=== PATIENT | female | born 2000 | race Caucasian/White ===

== ENCOUNTER 2022-10-13 21:24 | Inpatient (IN) ==
[2022-10-13] MEDS ORDERED: ACETAMINOPHEN 325 MG TAB PO PRN (23:18)
[2022-10-13] MEDS ORDERED: ONDANSETRON INJ 2 MG/ML 2 ML VIAL IV PRN (23:20)
--- NOTE | 2022-10-14 00:31 | History & Physical Report ---
Date of Service October 13, 2022 Assessment & Plan (1) Observed seizure-like activity: Plan: Patient is a 21-year-old G1, P0 female at 18 weeks gestation who presents to the hospital via direct transfer from [facility] for concern regarding seizure like activity. Patient has been admitted for neurologic evaluation and treatment. She is currently hemodynamically stable. -Admit to telemetry -Neurology consulted, appreciate recommendations -EEG ordered, will hold off MRI for now as this is not a new problem, will await neurology recs -Seizure precautions -will hold off from anticonvulsants at this time -CBC, CMP, mag for AM (2) 18 weeks gestation of : Plan: -Obstetrics consulted, appreciate recs - heart tones heard via Doppler at approximately 130-150 bpm -No vaginal bleeding (3) Leukocytosis: Plan: -likely secondary to seizure -Continue to trend daily Plan Diet: Regular OB DVT prophylaxis: Low risk, none ordered Dispo: Admit to telemetry with neurology consult CODE STATUS: Full code Admission and Anticipated Discharge Date Admission Date: October 13, 2022 History of Present Illness Chief Complaint: Seizure Primary Care Provider: John Smallwood PA-C Patient is a 21-year-old G1, P0 female at 18 weeks gestation who presents to the hospital via direct transfer from [facility] for concern regarding seizure like activity. Apparently this is not new for the patient. Patient reports that she has a grand mal seizure that happens once per year for a few years. She reports that her sister told her that she had a grand mal seizure for approximately 1 minute and it was a singular episode. Patient reports that she had a postictal state and was confused for 5 to 10 minutes after having the episode. Apparently she became nauseous due to a headache prior to this episode and vomited almost immediately before the seizure. She felt the headache was due to sinus issues but she does not have this symptom now. Denies any incontinence after possible seizure event. Denies any she reports that she has never been put on any anticonvulsive in the past. Only medication she takes is a vitamin. Denies vaginal bleeding but does report some abdominal cramping. No other complaints at this time. Patient currently feeling well and having no symptoms. Patient does report smoking daily consuming 6 cigarettes a day. Denies any drug use. Labs done at [facility]: -CMP with all results being within normal limits -Lactic acid level at 0.9 -Magnesium level 1.7 -Beta hCG quant to be at 10,276, this is considered a normal value given her gestation -CBC showing elevated white count at 16.6 with a neutrophilic predominance -All other values not mentioned above were within normal limits. Allergies Allergy/AdvReac Type Severity Reaction Status Date / Time Penicillins Allergy Unknown Hives, Verified 09/25/22 08:37 shortness of breath Home Medications Medication Instructions Recorded Confirmed Type omega-3 fatty acids [Fish Oil] PO 09/22/22 09/25/22 History prenat.vits,lavern,jwp-irng-rupiz 1 tab PO DAILY 09/22/22 09/25/22 History Past Med/Surg History Medical History (Updated 10/14/22 @ 01:03 by Dariusz Moeller DO) Seizures Surgical History (Updated 09/22/22 @ 13:40 by Daisy Mcdaniels) S/P wisdom tooth extraction Family History (Updated 09/22/22 @ 13:35 by Daisy Mcdaniels) Other No pertinent family history in first degree relatives Uterine cancer Social History (Updated 09/22/22 @ 13:36 by Daisy Mcdaniels) Smoking Status: Current every day smoker Tobacco Type: Cigarettes Cigarettes Per Day: 6; Do You Dip or Chew Tobacco: No; Hx Alcohol Use: No Hx Substance Use: No Preferred Language: Finnish Communication Ability: Effective Reception Specialist Required: No Beliefs That Will Affect Care: None marital status: Single marital status details: Benito (23) [phone] Current Living Situation: Alone Current Living Situation Comment: lives alone current occupational status: employed current occupation: [employer] Feels Safe at Home: Yes Safety Concerns: Feels Safe At This Time Assistive Devices: Glasses Review of Systems Review of Systems: All systems reviewed & are unremarkable except as noted in HPI & below Physical Exam Constitutional: WD/WN, vitals as above Eyes: + anicteric sclerae and PERRL ENMT: Ears: no hearing impairment Neck: trachea midline, no thyromegaly normal visual inspection Respiratory: normal respiratory effort, lungs clear to auscultation Cardiovascular: RRR, no murmur, no edema Gastrointestinal (Abdomen): normal bowel sounds, soft, nontender, no hepatosplenomegaly Gravid abdomen Musculoskeletal: Head/Neck/Chest: normocephalic and head atraumatic Skin: no rashes, warm and dry Neurologic: CN's II-XI intact bilaterally, moves all extremities and awake Psychiatric: A+Ox3, euthymic affect Genitourinary: OB Exam Abdomen: + heart tones Results & Data Results & Data Vital Signs (Past 12 Hours) Vital Signs Temp Pulse Resp BP Pulse Ox O2 Del Method 10/13/22 23:00 Room Air 10/13/22 22:43 36.7 C 77 14 94/56 L 98 Room Air
--- NOTE | 2022-10-14 02:11 | OB/GYN Consultation ---
Date of Consultation October 14, 2022 Assessment & Plan (1) 18 weeks gestation of : During hospital stay, recommend heart checks by doppler once per day. (2) Observed seizure-like activity: Given patient's history of seizures pre-, and gestational age <20 weeks, do not suspect eclampsia or -related etiology. BP not elevated and initial labs not indicative of preeclampsia either. CBC/CMP is ordered for this morning to recheck. If MRI/brain imaging is indicated, ok to perform MRI during . Would generally advise against gadolinium contrast unless its use is expected to significantly improve diagnostic abilities and is likely to improve patient outcome. If medication is indicated, the lowest teratogenic risk medications are lamotrigine and levetiracetam. Valproate should be avoided and only used if no other antiseizure medication is effective. Monotherapy is preferred if possible. There is increased clearance of antiseizure medications during , therefore if one is used, blood levels should be checked every 4 weeks - or more frequently if seizures increase or side effects worsen. Folic acid 1mg daily supplementation throughout the if an anti-seizure medication is used, if the medication is carbamazepine or valproate the folic acid should be 4mg daily. Please contact on-call [facility] for questions. History of Present Illness Reason for Consultation: , 18w Requesting Physician: Dr Hager Attending Physician: Romulo Hager MD History of Present Illness 21yo @ 18 05/16 initially seen at [facility] and transferred to [facility] for further eval/management for seizure. Apparently, she had a headache and vomited, then had a 1 minute grand mal seizure witnessed by her sister, followed by approx 5-10 minutes post-ictal state. She has had seizures in the past, has not been following regularly with neurology. uncomplicated. Transfer of care from [facility]. She is a smoker, underwent maternal cardiac echo d/t smoking and chest pain - wnl. Labs from [facility] ER (referenced in Dr Moeller's note) showed normal platelets, liver enzymes, creatinine. Allergies Allergy/AdvReac Type Severity Reaction Status Date / Time Penicillins Allergy Unknown Hives, Verified 09/25/22 08:37 shortness of breath Home Medications Medication Instructions Recorded Confirmed Type omega-3 fatty acids [Fish Oil] PO 09/22/22 09/25/22 History prenat.vits,lavern,yon-ayon-lrspr 1 tab PO DAILY 09/22/22 09/25/22 History Patient History Medical History (Updated 10/14/22 @ 01:03 by Dariusz Moeller DO) Seizures Surgical History (Updated 09/22/22 @ 13:40 by Daisy Mcdaniels) S/P wisdom tooth extraction Family History (Updated 09/22/22 @ 13:35 by Daisy Mcdaniels) Other No pertinent family history in first degree relatives Uterine cancer Social History (Updated 09/22/22 @ 13:36 by Daisy Mcdaniels) Smoking Status: Current every day smoker Tobacco Type: Cigarettes Cigarettes Per Day: 6; Do You Dip or Chew Tobacco: No; Hx Alcohol Use: No Hx Substance Use: No Preferred Language: Telugu Communication Ability: Effective Patch Setter Required: No Beliefs That Will Affect Care: None marital status: Single marital status details: Benito (23) [phone] Current Living Situation: Alone Current Living Situation Comment: lives alone current occupational status: employed current occupation: [employer] Feels Safe at Home: Yes Safety Concerns: Feels Safe At This Time Assistive Devices: Glasses Physical Exam Physical Exam: Gen: Awake, talking. Alert/oriented. Abd: soft, NTTP no bleeding Ext no edema Results & Data Vital Signs (Past 12 Hours) Vital Signs Temp Pulse Pulse Resp BP Pulse Ox O2 Del Method 10/13/22 22:36 56 L 10/13/22 23:00 Room Air 10/13/22 22:43 36.7 C 77 14 94/56 L 98 Room Air PG Care Time/CCT Total # of Minutes Spent Total Time Spent with Patient: Total time spent is greater than 50% in coordination of care (as documented) at patient's floor/unit and/or counseling patient: Coding Level of Care Code 68877 IN/OBS CONSULT LVL 2,35M Diagnoses 18 weeks gestation of Z3A.18 Observed seizure-like activity R56.9
[2022-10-14 04:49] LABS: Hematocrit (blood only) 35.1 % (37.0-47.0); Hemoglobin 11.9 g/dl (12.0-16.0); Mean Corpuscular Hgb Conc 33.9 g/dL (32.0-36.0); Mean Corpuscular Volume 91.4 fL (80.0-100.0); Platelet Count 248 K/uL (130-400); RDW Coefficient of Variation 13.4 % (11.5-14.5); RDW Standard Deviation 44.4 fL (36.4-46.3); Red Blood Count 3.84 M/uL (4.20-5.40); White Blood Count 13.84 K/ul (4.8-10.8)
[2022-10-14 05:08] LABS: Alanine Aminotransferase 12 U/L (7-52); Albumin Globulin Ratio 1.3 (0.9-2); Albumin Level 3.5 gm/dl (3.4-5.0); Alkaline Phosphatase 53 U/L (34-104); Anion Gap 5 (3-11); Aspartate Aminotransferase 15 U/L (13-39); BUN Creatinine Ratio 16.4 (10-20); Bilirubin,Total 0.2 mg/dl (0.2-1.0); Blood Urea Nitrogen 9 mg/dl (6-23); Calcium 8.9 mg/dl (8.6-10.3); Carbon Dioxide 25 mmol/L (21-32); Chloride 107 mmol/L (98-107); Creatinine Clr Calc Pharmacy 143.5 ml/min; Est GFR (African American) > 150.0 ml/min; Est GFR (Non-African American) 134.1 ml/min; Globulin 2.6 gm/dl (2.5-4.0); Glucose 101 mg/dl (70-99(Fasting)); Magnesium 1.8 mg/dl (1.7-2.4); Potassium 3.7 mmol/L (3.5-5.1); Sodium 137 mmol/L (136-145); Total Protein 6.1 gm/dl (6.0-8.3)
--- NOTE | 2022-10-14 08:52 | Electroencephalogram ---
EEG Procedure Note Date of Service October 14, 2022 Start / End Times Start Time: 803 End Time: 823 Referring Physician Dariusz Moeller D.O. History 21 real with history of seizure. Home Medication List Medication Instructions Recorded Confirmed Type omega-3 fatty acids [Fish Oil] PO 09/22/22 09/25/22 History prenat.vits,lavern,nqs-[id number]-[id number] 1 tab PO DAILY 09/22/22 09/25/22 History Inpatient Medication List Acetaminophen (Acetaminophen 325 Mg Tab) 650 mg PO Q4H PRN PRN Reason: Pain Stop: 11/12/22 23:17 Last Admin: 10/14/22 00:03 Dose: 650 mg Documented By: CHELY Prenat Multivit/Mccreary/Iron/Folic Ac ( Vitamin 1 Tab) 1 tab PO QAM CRYSTAL Stop: 11/13/22 08:59 Last Admin: 10/14/22 08:43 Dose: 1 tab Documented By: KHOA Description This is a 21 electrode EEG with a single channel dedicated to limited EKG. The electrodes were placed in accordance with the International 10-20 system. Interpretation The predominant background activity consists of a very well modulated 10 Hz activity, of up to 50 mV in amplitude,seen symmetrically distributed over the posterior head regions bilaterally. This activity attenuates nicely with eye- opening and other alerting procedures. Photic stimulation was performed and elicited no change in the background activity and no abnormal responses were seen. Hyperventilation was not performed. A minimal amount of muscle and movement artifact activity contaminated the recording and did not hinder interpretation to any significant degree. Throughout the waking portion of the recording, no focal abnormalities, abnormal slow activity, or potentially epileptogenic discharges are seen. The patient entered the drowsy state and brief periods of stage II sleep with no further activation. In summary, this EEG was normal during wakefulness and sleep. No focal abnormalities, potentially epileptogenic discharges, or abnormal slow activity was seen. Clinical Correlation The abscence of potentially epileptogenic activity does not exclude a seizure disorder, since interictally, EEGs can be normal. Clinical correlation is required. [facility] EEG Procedure Codes Indication for Procedure (1) Observed seizure-like activity: Neurology Neurology: 95360 EEG include record awake & sleepy
[2022-10-14] MEDS ORDERED: SODIUM CHLORIDE 0.9% 1000ML 1,000 ML IV ONE (09:00)
[2022-10-14] MEDS ORDERED: PRENATAL VITAMIN 1 TAB PO SCH (09:00)
--- NOTE | 2022-10-14 10:32 | Neurology Consultation ---
Date of Consultation October 14, 2022 Assessment & Plan (1) Seizure disorder: (2) 18 weeks gestation of : Plan patient is 18 weeks (due date March of 2023) who has a history of intermittent generalized seizures. The seizures started early in life (age 7) and they have been more recently triggered when she drinks alcohol excessively. She had a seizure October 13 that was essentially unprovoked. Neurologic examination is unremarkable today with no focal findings, meningeal signs, or encephalopathy. Laboratory studies are largely unremarkable as well. Recommendations: 1. I am concerned that she is at risk for further seizures as she moves through her and recommend initiating anticonvulsant medication. Initiate lamotrigine 25 mg twice a day for 1 week, then increase to 50 mg twice a day for 1 week, then increase to 75 mg twice a day for 1 week, then 100 mg twice daily. 2. Two weeks after she reaches 100 mg twice daily, then check a trough Lamictal level and we can adjust accordingly. 3. Consider MRI of the brain but ideally it would need to be with and without contrast. We would not give a woman contrast. I think the odds of finding an abnormality that needs attention currently is very low so it is reasonable to hold off on obtaining an MRI for now. We could get the MRI after she delivers. 4. I can follow as an outpatient in 2-3 weeks ( with PA) Overall, I spent a total of 80 minutes with this case including review of records, direct evaluation the patient at bedside, reports generation, and discussion of the case with the patient at bedside, RN at bedside, and Dr. Gongora including differential diagnosis and treatment options. History of Present Illness Reason for Consultation: Patient is a 21-year-old, who I was asked to see the request of Dr. Hager, for neurologic consultation regarding seizure. Requesting Physician: Dr. Hager Attending Physician: Pasha Gongora, History of Present Illness patient started having seizures sometime around age 7. As a child she had a seizure every 2-3 years and she cannot recall any triggering factors. Apparently she did not take any medicine for these ( but I have no records). Patient tells me that she started smoking cigarettes around age 11 and drinking alcohol around age 13. she still smokes, around 6 cigarettes per day. in June of this year she stopped drinking alcohol because she learned she was . Prior to this she was a binge drinker, drinking somewhat heavily on the weekends (or every other weekend) but not during the week. patient tells me that most of her seizures since her teenage years have occurred with excessive drinking. They were occurring about once per year on average. Her most recent seizure was in March Of 2022. She had had 12 beers and then apparently had this seizure. On October 13, she was at work, at the [employer] in [facility], as usual, when around 4 in the afternoon she felt hot and somewhat dizzy. She sat down and then vomited. After this she had a witnessed generalized seizure. It lasted about a minute and then she had 5-10 minutes of a postictal sleepiness. she has not had any seizures since. She was transferred from [place] emergency room directly to the floor. EEG this morning was unremarkable/ normal with no focal abnormalities or potentially epileptogenic discharges. This morning she feels back to baseline with no headache, pain, dizziness, vision problems, weakness, or numbness. CBC showed a mildly elevated white count mild anemia. Chem profile was largely unremarkable. Allergies Allergy/AdvReac Type Severity Reaction Status Date / Time Penicillins Allergy Unknown Hives, Verified 09/25/22 08:37 shortness of breath Home Medications Medication Instructions Recorded Confirmed Type omega-3 fatty acids [Fish Oil] PO 09/22/22 09/25/22 History prenat.vits,lavern,[id number]-[id number] 1 tab PO DAILY 09/22/22 09/25/22 History Patient History Medical History Seizures Surgical History S/P wisdom tooth extraction Family History Other No pertinent family history in first degree relatives Uterine cancer Social History Smoking Status: Current every day smoker Tobacco Type: Cigarettes Cigarettes Per Day: 6; Do You Dip or Chew Tobacco: No; Hx Alcohol Use: No Hx Substance Use: No Preferred Language: Liberian Communication Ability: Effective Hospice Liaison Required: No Beliefs That Will Affect Care: None marital status: Single marital status details: Benito (23) [phone] Current Living Situation: Alone Current Living Situation Comment: lives alone current occupational status: employed current occupation: [employer] Feels Safe at Home: Yes Safety Concerns: Feels Safe At This Time Assistive Devices: Glasses Review of Systems Constitutional: no fever, no fatigue and no weakness Eyes: no diplopia, no eye pain and no worsening vision Ear, Nose, Mouth, Throat: no ear pain, no tinnitus, no hearing loss, no dizziness, no snoring, no hoarseness and no dysphagia Respiratory: no cough and no dyspnea Cardiovascular: no chest pain, no palpitations and no lightheadedness Gastrointestinal: no abdominal pain, no nausea and no vomiting Genitourinary: no dysuria, no urinary frequency and no urinary incontinence Musculoskeletal: no back pain, no neck pain, no radicular pain, no joint pain and no myalgia Integumentary: no rash and no lesions Neurologic: no gait abnormality, no localized weakness, no generalized weakness, no tingling, no numbness, no tremor(s), no abnormal movements, no headache(s), no abnormal speech, no confusion and no memory loss Psychiatric: no depression, no irritability, no anxiety, no difficulty concentrating, no confusion and no hallucinations Endocrine: no fatigue and no flushing Hematologic / Lymphatic: no easy bleeding and no easy bruising Allergy / Immunological: no urticaria and no problem reported Exam (Neuro) Physical Exam: The patient is right-handed. The patient is awake, alert, and attentive. Speech is normal without any aphasia or dysarthria. The patient can name objects, repeat phrases, and has normal spontaneous speech. Mentation and thought processes are intact, with orientation to person, place and time, and normal fund of knowledge. Attention and concentration are normal. Mood and affect are normal and appropriate. General appearance and grooming are normal. Short and long-term memory are intact. Pupils are 4 mm bilaterally and reactive to light. Extraocular eye muscles are intact without nystagmus. Visual acuity and visual cannon seem normal grossly to confrontation. There are no deficits to sensation in the face in all 3 distributions of the fifth cranial nerve bilaterally. Corneal reflexes are positive bilaterally. Facial strength and symmetry was normal bilaterally. Hearing seems normal bilaterally. Palate moves well without asymmetry. There is normal sternocleidomastoid and trapezius (shoulder shrug) strength bilaterally. Tongue is midline with good strength bilaterally. Neck has a full range of motion without discomfort. There are no cervical bruits bilaterally. There are no cranial or ocular bruits. Heart is without murmur. There is a regular rhythm and rate. Cervical, thoracic, and lumbar spine are nontender to palpation. Gait is narrow based, with good arm swing, turns, and stance. Balance is normal eyes open or closed. The patient can tandem walk without difficulty. The patient can heal and toe walk normally. With outstretched arms there is no drift. There are no resting, postural, or action tremors. There is no ataxia with finger to nose testing. There is good facility in the hands. No other abnormal involuntary movements are noted. Motor strength is 5/5 diffusely in the arms bilaterally including deltoids, biceps, triceps, brachioradialis, wrist flexors and extensors, paper core machine operator, and intrinsic hand muscles. Motor strength is 5/5 diffusely in the legs bilaterally including hip flexors, quadriceps, hamstrings, gastrocnemius, tibialis anterior, tibialis posterior, and Peroneii muscles. Toe extensors are normal and there is good bulk in the extensor digitorum brevis muscles bilaterally. The limbs have good tone without rigidity or spasticity. There is no atrophy noted in the muscles. Muscle bulk is normal, there is no tenderness to palpation, no myotonia to percussion, and no fasciculations seen. Sensory examination is intact to touch and pin throughout all 4 limbs diffusely. Reflexes are 2/4 in the biceps, triceps, brachioradialis, quadriceps, and Achilles tendons bilaterally. There is no clonus bilaterally. Toes are downgoing with plantar stimulation bilaterally. Peripheral pulses are present and of normal quality distally in all 4 limbs. There is no peripheral edema noted in the limbs. Results & Data Vital Signs (Past 12 Hours) Vital Signs Temp Pulse Pulse Pulse Resp BP BP 10/14/22 08:48 36.8 C 69 18 80/40 L 10/14/22 07:24 47 L 10/14/22 06:54 36.6 C 59 L 16 92/57 L 10/14/22 05:20 36.4 C L 60 18 86/39 L 10/13/22 22:36 56 L 10/13/22 23:00 10/13/22 22:43 36.7 C 77 14 94/56 L Pulse Ox O2 Del Method 10/14/22 08:48 98 Room Air 10/14/22 07:24 10/14/22 06:54 98 Room Air 10/14/22 05:20 98 Room Air 10/13/22 22:36 10/13/22 23:00 Room Air 10/13/22 22:43 98 Room Air PG Care Time/CCT Total # of Minutes Spent Total Time Spent with Patient: Total time spent is greater than 50% in coordination of care (as documented) at patient's floor/unit and/or counseling patient: Coding Level of Care Code 72591 IN/OBS CONSULT LVL 5,80M Diagnoses Seizure disorder G40.909 18 weeks gestation of Z3A.18 Time Spent (min) 80
--- NOTE | 2022-10-14 13:03 | Discharge Summary ---
Date of Service October 14, 2022 Admission HPI Per Admitting Provider Patient is a 21-year-old G1, P0 female at 18 weeks gestation who presents to the hospital via direct transfer from [facility] for concern regarding seizure like activity. Apparently this is not new for the patient. Patient reports that she has a grand mal seizure that happens once per year for a few years. She reports that her sister told her that she had a grand mal seizure for approximately 1 minute and it was a singular episode. Patient reports that she had a postictal state and was confused for 5 to 10 minutes after having the episode. Apparently she became nauseous due to a headache prior to this episode and vomited almost immediately before the seizure. She felt the headache was due to sinus issues but she does not have this symptom now. Denies any incontinence after possible seizure event. Denies any she reports that she has never been put on any anticonvulsive in the past. Only medication she takes is a vitamin. Denies vaginal bleeding but does report some abdominal cramping. No other complaints at this time. Patient currently feeling well and having no symptoms. Patient does report smoking daily consuming 6 cigarettes a day. Denies any drug use. Labs done at [facility]: -CMP with all results being within normal limits -Lactic acid level at 0.9 -Magnesium level 1.7 -Beta hCG quant to be at 10,276, this is considered a normal value given her gestation -CBC showing elevated white count at 16.6 with a neutrophilic predominance -All other values not mentioned above were within normal limits. Admission Exam Per Admitting Provider Constitutional: WD/WN, vitals as above Eyes: + anicteric sclerae and PERRL ENMT: Ears: no hearing impairment Neck: trachea midline, no thyromegaly normal visual inspection Respiratory: normal respiratory effort, lungs clear to auscultation Cardiovascular: RRR, no murmur, no edema Gastrointestinal (Abdomen): normal bowel sounds, soft, nontender, no hepatosplenomegaly Gravid abdomen Musculoskeletal: Head/Neck/Chest: normocephalic and head atraumatic Skin: no rashes, warm and dry Neurologic: CN's II-XI intact bilaterally, moves all extremities and awake Psychiatric: A+Ox3, euthymic affect Genitourinary: OB Exam Abdomen: + heart tones Principal Diagnosis Seizure like activity Discharge Exam Constitutional WD/WN, vitals as above Eyes PERRL, conjunctivae normal, anicteric sclerae Respiratory normal respiratory effort, lungs clear to auscultation Cardiovascular RRR, no murmur, no edema Gastrointestinal (Abdomen) normal bowel sounds, soft, nontender, no hepatosplenomegaly Skin no rashes, warm and dry Psychiatric A+Ox3, euthymic affect Discharge Data Allergies Allergy/AdvReac Type Severity Reaction Status Date / Time Penicillins Allergy Unknown Hives, Verified 09/25/22 08:37 shortness of breath Consultations 10/13/22 23:20 Consult Neurology Routine 10/13/22 23:32 Consult Obstetrics Routine Hospital Course (1) Observed seizure-like activity: Patient is a 21-year-old G1, P0 female at 18 weeks gestation who presents to the hospital via direct transfer from [facility] for concern regarding seizure like activity. Patient has been admitted for neurologic evaluation and treatment. She is currently hemodynamically stable. -EEG performed in hospital which was normal. -Consulted Neurology: -stress of may trigger further seizure episodes, recommend starting an anti-seizure medication. -Start on lamotrigine 25mg BID and build up to 100mg BID followed by checking lamotrigine trough level at follow up neurology appointment in 3 weeks. -Can consider MRI brain w/&w/o contrast after delivery. -Sent script for Lamotrigine to pharmacy for patient and discharged since overall feeling well and back to baseline. -Follow up with neurology in 2-3 weeks, follow up with OB clinic. (2) 18 weeks gestation of : -Obstetrics consulted, recommended either lamotrigine or leviteracitam if seizure prophylaxis medication, increased clearance of antiseizure meds in so check levels at 4 weeks. - heart tones heard via Doppler at approximately 130-150 bpm -No vaginal bleeding (3) Leukocytosis: -likely secondary to seizure Total Time Total Time Spent Total Time Spent (In Minutes): <30 Discharge Plan Discharge Items Patient Disposition: Home - Self-Care Reason For Visit: Seizure Discharge Diagnosis: Epileptic seizure Activity: Resume your previous activity Non-emergency contact: Primary Care Provider and Neurologist Call non-emergency contact if: you have any medication questions, your symptoms worsen and you have a fever Follow-up/Referrals: Weston Miguel MD [Physician] - 10/20/22 10:00 am (to be scheduled for approximately three weeks post-discharge) John Smallwood PA-C [Primary Care Provider] - 10/21/22 10:30 am Diet: Regular OB Addtl Attending Provider Instructions: You were admitted to the hospital for seizure. You were evaluated by our neurologist, who feels your seizures are epileptic seizures, which can be treated with anti-seizure medicine. This is especially important because p regnancy can sometimes be a seizure trigger. Your symptoms have improved and we feel it is safe for you to return home. A discharge summary will be sent to your primary care physician to ensure rufino nuity of care. Please bring this discharge summary with you to your next office appointment so that your provider can review it at that time. Follow-up appointments: Make a follow-up appointment with your PCP within the next week. It is very important that you follow up with them shortly after discharge from the hospital. We have requested a follow-up appointment with Dr. Miguel (the neurologist who evaluated you in the hospital) which will take place in about three weeks. The neurology office will be in touch with you over the next few days to schedule this appointment. Keep all your follow-up appointments as already scheduled. If you cannot make an appointment, notify your provider. Medications: Your medication list has been reviewed and reconciled upon discharge to ensure accuracy and continuity of care. An updated list of all your medications is included with your hospital discharge paperwork. Please review this list mrailyn catheriney, and make note of any changes. * We sent a new medication called lamotrigine (also called Lamictal) to your pharmacy. Your dose of lamotrigine will go up over time: * For the next seven days (10/14 - 10/20), take lamotrigine (50mg) one half tablet twice daily. * The following week (10/21 - 10/27), take lamotrigine (50mg) one tablet twice daily. * During week three (10/28 - 11/03), take lamotrigine (50mg) one and a half tablets twice daily. * Starting 11/04, take lamotrigine (50mg) two tablets twice daily. This will be your dose until you follow-up with neurology, as your neurologist may adjust the dose further. If you have any issues filling these prescriptions, please call [phone] and ask to leave a message for Dr. Alex Styles. Take your medications as instructed; do not skip a dose of your medicines. Make sure all of your doctors know every medicine you are taking (including bnfa-wiv-ckywmpg medicines, vitamins, and supplements). Call your primary care provider before taking any new medicines (including vzue-mfg-lzmtute medicines, vitamins, and supplements), because some of these may interact with your current medications, or may make your symptoms worse. Tell your primary care provider if you cannot afford your medications. CONTACT YOUR PRIMARY CARE PROVIDER if you experience any of the following: Repeat seizure like activity. Difficulty following your treatment plan, or difficulty taking medications CALL 911 OR GO TO THE EMERGENCY DEPARTMENT if you experience any of the following: Sudden, severe abdominal pain or nausea/vomiting Severe chest pain, or chest pain that radiates (moves) to your jaw or arm Sudden, severe shortness of breath or difficulty breathing Thank you for allowing us to participate in your care. Pending Studies at Discharge: No Stand-Alone Forms: My [facility], Smoking Cessation Medications and DC Order Prescriptions: New lamotrigine 50 mg tablet,disintegrating 50 mg PO BID Qty: 70 0RF Rx Instructions: -For the next seven days (10/14 - 10/20), take lamotrigine (50mg) one half tablet twice daily. -The following week (10/21 - 10/27), take lamotrigine (50mg) one tablet twice daily. -During week three (10/28 - 11/03), take lamotrigine (50mg) one and a half tablets twice daily. -Starting 11/04, take lamotrigine (50mg) two tablets twice daily. Continued prenat.vits,lavern,efc-xyyk-ykdid Tablet 1 tab PO DAILY omega-3 fatty acids [Fish Oil] PO Discharge Orders: Discharge Order (Routine); Ordered 10/14/22 Ordered By: Alex Gant/Other Patient Handouts: First Aid: Seizures, What Is a Partial Seizure?, Partial Seizures: Know What to Do, Partial Seizures: Staying Healthy Admission Data Admit Date/Time: 10/13/22 22:31 Attending Provider: Pasha Gongora Admit Provider: Romulo Hager Primary Care Provider: John Smallwood Other Providers: Weston Miguel ; Julienne Camp Other Interventions: Discharge Summary Assessment (RN) Last Done: 10/14/22 13:22 Supervising Physician Co-Signing Physician Notes I personally examined the patient and verified all munoz points of history and exam, discussed case, and agree with decision making with Dr Styles Feeling okay. Would like to go home. Discussed with neurologyhis main concern is that as the physiologic stressors of continue, her seizure threshold and seizures themselves may get worse and worseand therefore the risk of uncontrolled seizures would be higher risk to her and the baby's wellbeing than the risk of low-dose anticonvulsant. Patient expresses understanding. Vitals noted, in general she is awake and alert pleasant no distress. HEENT normocephalic atraumatic mucous membranes moist. Breathing unlabored no accessory muscle use good effort. Skin shows no rashes no pallor or icterus. Seizure disorder with breakthrough seizure After discussion with neurology, concern would be that her seizures may worsen as the progresses, patient expresses understanding of this and agrees with anticonvulsant therapy. [id number] twice daily increased to 50 twice daily and so on per neurology recommendationswe will be seeing neuro as an outpatient as well. Folic acid at 1 mgI have sent a separate prescription just to be sure she is getting enough folate. Otherwise as above Resident Activity Tracking Resident Involvement: Resident Care Provided Care Provided: Adult Hospital Medicine
--- NOTE | 2022-10-14 17:32 | Billing Data ---
Date of Service October 14, 2022 Coding Level of Care Code 29773 IN/OBS DISCH 30 MIN/LESS
--- NOTE | 2022-10-15 12:57 | Communication Note ---
Date of Service: October 15, 2022 pt called in - 50mg disintigrating tab Rx'd, not covered. tabs appear to be 25, 100, 150, 200 - so sent Rx for tabs @ 25mg w detailed instructions for 25mg bid x 7 days, 50mg bid x 7 days, 75mg bid x 7 days, 100mg bid thereafter or until/unless otherwise directed
== END 2022-10-14 14:13 | disposition home or self-care (01) | DRG 833 ==
LOC: SUATTDRO 22:31 → 4W 22:31

== ENCOUNTER 2023-03-16 02:43 | Inpatient (IN) ==
[2023-03-16] MEDS ORDERED: LIDOCAINE 1% LOCAL 20 ML VIAL INFIL PRN (02:59)
[2023-03-16] MEDS ORDERED: OXYTOCIN 30 UNITS/500 ML BAG IV PRN ×3 (02:59→14:05)
--- NOTE | 2023-03-16 03:01 | History & Physical Report ---
Date of Service March 16, 2023 Assessment & Plan (1) Normal labor: Plan admit. fetus catgory one. expectant management and pitocin as indicated. epidural on demand. Continue lamictal. anticipate . History of Present Illness Chief Complaint: rom, contractions Primary Care Provider: John Smallwood PA-C Patient is a 22yowf with iup at 40 0/7 who presents to labor and delivery with contractions. Patient notes pressure and a pop around 1am and notes has been leaking fluid since. Notes +fm. some spotting. complicated by new onset seizures. Was started on lamictal and followed by neurology. Last seen in 12/2022. and Delivery Plans ? 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 consult (12/03/22 [facility]normal Seizures-last 10/30 *On Lamictal *Follows with [facility] OB Labs: Blood Type O Positive 07/06/22 Hemoglobin 11.3 g/dl (12.0-16.0) L 12/25/22 Hematocrit 33.4 % (37.0-47.0) L 12/25/22 Mean Corpuscular Volume 91.4 fL (80.0-100.0) 10/14/22 Platelet Count 248 K/uL (130-400) 10/14/22 Glucose 1 Hour 50 gm Load 97 mg/dl (70-130) 12/25/22 OB Optional Labs: No Data to Display Labs Reviewed: Initial OB Labs (08/12/22) Blood Type & RH O positive Antibody Screennegative HCT/HGB40.7/13.0 [id number] Hep C IgG 13yrs+ Oldnon reactive Pap Testnegative (07/29/22) Chlamydianegative Gonorrheanegative Rubellaimmune RPRnon reactive Urine Culture/Screen<10,000 cfu/ml 3 colony types HBsAgnon reactive HIVnon reactive MCV91.3 CF/SMA negative (08/12/22) HK quad neg - sln gbs neg Allergies Allergy/AdvReac Type Severity Reaction Status Date / Time Penicillins Allergy Severe Hives, Verified 03/15/23 13:31 shortness of breath Home Medications Medication Instructions Recorded Confirmed Type vitamin with calcium 1 tab PO DAILY #90 tabs 10/26/22 03/15/23 Rx no.72-iron 27 mg-folic acid 1 mg tablet ( Vitamins Plus Low Iron) lamotrigine 100 mg tablet 100 mg PO BID #60 tabs 11/13/22 03/15/23 Rx Patient History Medical History (Updated 03/16/23 @ 03:05 by Larissa Petit MD, FACOG) Seizure disorder 18 weeks gestation of Observed seizure-like activity Seizures Last had a seizure October 2022. 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 Hand Required: No Beliefs That Will Affect Care: None marital status: Single marital status details: Benito (23) [phone] Current Living Situation: Alone Current Living Situation Comment: lives alone current occupational status: employed current occupation: [employer] Feels Safe at Home: Yes Diet: regular Assistive Devices: Contacts and Glasses 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
[2023-03-16] MEDS: LACTATED RINGER'S 1,000 ML IV PRN ×2 (03:24→07:26)
[2023-03-16] MEDS ORDERED: SODIUM CHLORIDE 0.9% PF INJ 10 ML VIAL ONE (03:39)
[2023-03-16] MEDS ORDERED: ePHEDrine sulfate 50 MG/ML AMP ONE (03:39)
[2023-03-16] MEDS ORDERED: fentaNYL citrate PF 100 MCG/2 ML VIAL ONE (03:39)
[2023-03-16] MEDS ORDERED: LIDOCAINE 2%/EPINEPHRINE 1:200,000 20 ML PF ONE (03:40)
[2023-03-16] MEDS ORDERED: fentANYL 2 MCG/ML BUPIVacaine 0.125%-NSS 100ML BAG ONE (03:40)
[2023-03-16] MEDS ORDERED: BUPIVACAINE 0.25% PF 30 ML VIAL ONE (03:40)
[2023-03-16 03:43] LABS: Hematocrit (blood only) 37.7 % (37.0-47.0); Hemoglobin 12.6 g/dl (12.0-16.0); Mean Corpuscular Hemoglobin 30.4 pg (25.0-34.0); Mean Corpuscular Hgb Conc 33.4 g/dL (32.0-36.0); Mean Corpuscular Volume 90.8 fL (80.0-100.0); Mean Platelet Volume 11.8 fL (9.4-12.4); Platelet Count 256 K/uL (130-400); RDW Coefficient of Variation 14.1 % (11.5-14.5); RDW Standard Deviation 47.3 fL (36.4-46.3); Red Blood Count 4.15 M/uL (4.20-5.40); White Blood Count 17.73 K/ul (4.8-10.8)
[2023-03-16] MEDS ORDERED: NALBUPHINE HCL 5 MG in SYRINGE 0 ML IV PRN (03:53)
[2023-03-16] MEDS ORDERED: BUPIVACAINE 0.25% PF 30 ML VIAL EPI PRN (03:53)
[2023-03-16] MEDS ORDERED: BUPIVACAINE 0.25% PF 30 ML VIAL EPI STA (03:53)
[2023-03-16] MEDS ORDERED: SODIUM CHLORIDE 0.9% PF INJ 10 ML VIAL EPI PRN (03:53)
[2023-03-16] MEDS ORDERED: SODIUM CHLORIDE 0.9% PF INJ 10 ML VIAL EPI STA (03:53)
[2023-03-16] MEDS ORDERED: ROPIVACAINE 0.5% PF 5 MG/ML 20 ML VIAL EPI PRN (03:53)
[2023-03-16] MEDS ORDERED: NALOXONE HCL 1 MG in SODIUM CHLORIDE 0.9% 1,000 ML IV PRN (03:53)
[2023-03-16] MEDS ORDERED: diphenhydrAMINE 50 MG/ML VIAL IV PRN (03:53)
[2023-03-16] MEDS ORDERED: NALOXONE HCL 0.4 MG/1 ML VIAL/CARP IV PRN (03:53)
[2023-03-16] MEDS ORDERED: ONDANSETRON INJ 2 MG/ML 2 ML VIAL IV PRN (03:53)
[2023-03-16] MEDS ORDERED: LIDOCAINE 2%/EPINEPHRINE 1:200,000 20 ML PF EPI STA (03:53)
[2023-03-16] MEDS ORDERED: LIDOCAINE 2% MPF LOCAL 5 ML VIAL EPI PRN (03:53)
[2023-03-16] MEDS ORDERED: ePHEDrine sulfate 50 MG/ML AMP IV PRN (03:53)
[2023-03-16] MEDS ORDERED: fentaNYL citrate PF 100 MCG/2 ML VIAL EPI STA (03:53)
[2023-03-16] MEDS ORDERED: fentaNYL citrate PF 100 MCG/2 ML VIAL EPI PRN (03:53)
--- NOTE | 2023-03-16 03:55 | Anesthesiology Consultation ---
Date of Service March 16, 2023 Assessment & Plan (1) Encounter for pre-operative examination: Chart Review Chart Review: Patient NOT seen in Pre Admission Testing and Acceptable Risk for Labor Epidural seizures now controlled on lamictal. Consults Requested none History Height/Weight Height: 5 ft 3 in Weight: 79.379 kg Allergies Allergy/AdvReac Type Severity Reaction Status Date / Time Penicillins Allergy Severe Hives, Verified 03/15/23 13:31 shortness of breath Medications Home Medications Medication Instructions Recorded Confirmed Last Taken vitamin with calcium 1 tab PO DAILY #90 tabs 10/26/22 03/16/23 03/14/23 no.72-iron 27 mg-folic acid 1 mg tablet ( Vitamins Plus Low Iron) lamotrigine 100 mg tablet 100 mg PO BID #60 tabs 11/13/22 03/16/23 03/16/23 Active Medications Generic Name Dose Route Start Last Admin Trade Name Freq PRN Reason Stop Dose Admin Lactated Ringer's 1,000 mls @ 125 mls/hr 03/16/23 02:59 03/16/23 03:24 Lr IV 03/18/23 02:58 999 mls/hr .Q8H PRN Administration L&D Protocol Protocol Past Medical History Medical History (Updated 03/16/23 @ 03:55 by Sahil uBtt MD) Encounter for pre-operative examination Seizure disorder Observed seizure-like activity Seizures Last had a seizure October 2022. Exercise / Class Metabolic Activity II 4-5 Yardwork/Stairs/Walk up hill Past Family History Family History Other No pertinent family history in first degree relatives Uterine cancer Past Surgical History Surgical History S/P wisdom tooth extraction Past Anesthesia History No Hx of Anesthesia Complications and No Family Hx of Anesthesia Complications Social History Smoking Status: Current every day smoker tobacco type: cigarettes Do You Dip or Chew Tobacco: No Hx Alcohol Use: No Hx Substance Use: No substance use type: does not use Physical Exam Vital Signs Last Vital Signs Temp 36.5 C 03/16/23 02:56 Pulse 69 03/16/23 04:18 Resp 18 03/16/23 02:56 BP 110/60 03/16/23 03:02 Pulse Ox 98 03/16/23 04:18 Testing Laboratory Results 03/16/23 03:06
[2023-03-16] MEDS: fentANYL 2 MCG/ML BUPIVacaine 0.125%-NSS 100ML BAG EPI PRN ×3 (04:32→12:07)
--- NOTE | 2023-03-16 06:54 | Labor Progress Brief Note ---
Date of Service March 16, 2023 Subjective Got epidural, sleeping, comfortable Assessment & Plan (1) Normal labor: Plan Making progress, continue expectant management. fetus category one. Admission and Anticipated Discharge Date Admission Date: March 16, 2023 Physical Exam Physical Exam: cx--6/100/-2 arom of forebag toco--q2-5min efm--130s with mod variabiltiy, +accels, no decels Results & Data Vital Signs (Past 12 Hours) Vital Signs Temp Pulse Resp BP Pulse Ox 03/16/23 06:50 87 118/56 L 03/16/23 06:48 83 99 03/16/23 06:43 91 H 99 03/16/23 06:38 68 98 03/16/23 06:34 71 117/58 L 03/16/23 06:33 85 99 03/16/23 06:28 66 97 03/16/23 06:23 67 98 03/16/23 06:20 67 119/57 L 03/16/23 06:18 66 97 03/16/23 06:13 66 97 03/16/23 06:08 77 99 03/16/23 06:03 74 97 03/16/23 06:02 72 111/55 L 03/16/23 06:00 58 L 18 119/62 03/16/23 05:58 65 98 03/16/23 05:55 67 119/58 L 03/16/23 05:53 63 97 03/16/23 05:50 60 114/61 03/16/23 05:48 91 H 97 03/16/23 05:46 75 118/58 L 03/16/23 05:43 60 98 03/16/23 05:40 63 113/56 L 03/16/23 05:38 63 98 03/16/23 05:36 65 117/57 L 03/16/23 05:33 79 97 03/16/23 05:30 71 18 116/66 03/16/23 05:28 66 98 03/16/23 05:25 64 117/67 03/16/23 05:23 69 99 03/16/23 05:20 59 L 110/68 03/16/23 05:18 62 99 03/16/23 05:15 65 115/70 03/16/23 05:13 64 97 03/16/23 05:10 60 120/68 03/16/23 05:08 61 98 03/16/23 05:05 67 111/66 03/16/23 05:03 73 99 03/16/23 05:00 36.6 C 69 18 110/68 03/16/23 04:58 71 98 03/16/23 04:55 59 L 126/74 03/16/23 04:53 61 98 03/16/23 04:50 58 L 130/78 03/16/23 04:48 70 98 03/16/23 04:45 65 120/78 03/16/23 04:43 69 98 03/16/23 04:39 71 116/71 03/16/23 04:38 67 98 03/16/23 04:37 63 123/76 03/16/23 04:35 62 115/66 03/16/23 04:33 64 112/61 97 03/16/23 04:31 68 111/59 L 03/16/23 04:30 18 03/16/23 04:30 18 03/16/23 04:29 61 114/63 03/16/23 04:28 61 98 03/16/23 04:27 70 112/60 03/16/23 04:25 63 115/61 03/16/23 04:23 64 121/65 98 03/16/23 04:21 76 122/67 03/16/23 04:18 69 98 03/16/23 04:13 77 99 03/16/23 04:08 71 99 03/16/23 04:03 63 99 03/16/23 03:02 36.5 C 18 03/16/23 03:02 73 110/60 03/16/23 02:56 36.5 C 18 Coding Level of Care Code None Diagnoses Normal labor O80; Z37.9
[2023-03-16] MEDS ORDERED: lamoTRIgine 100 MG TAB PO SCH ×2 (09:00→21:00)
[2023-03-16] MEDS ORDERED: NURSING L&D Epidural Breakthrough Pain Update ONE (12:19)
[2023-03-16] MEDS ORDERED: bisacodyL 10 MG SUPP PR PRN (14:05)
[2023-03-16] MEDS ORDERED: DIPHTHERIA/TETANUS/PERTUSSIS Vaccine (Tdap, Age 7+yrs) 0.5mL SYR/VL IM ONE (14:05)
[2023-03-16] MEDS ORDERED: HYDROCORTISONE ACETATE 25 MG SUPP PR PRN (14:05)
--- NOTE | 2023-03-16 14:34 | Delivery Summary ---
Vaginal Delivery Summary Date of Service March 16, 2023 Vaginal Delivery Summary and 2nd Degree LAC Patient is a 22-year-old 1 P0 female who presents presented with spontaneous rupture of membranes and active labor. She received effective epidural analgesia and augmentation of her contractions. She progressed to full dilation with the urge to push. She pushed effectively over intact perineum for delivery of a viable female . After the head was delivered the rest the infant delivered easily was placed on the mother's abdomen for further attention and drying. The infant was vigorous and moving all 4 limbs. After 1 minute, the cord was clamped and cut. After cord blood was obtained, the placenta was expressed intact with a three-vessel cord. bleeding was controlled with dilute Pitocin and fundal massage. A second-degree perineal laceration was repaired with 3-0 chromic in usual fashion. Bilateral labial abrasions were not bleeding and therefore not repaired. Estimated blood loss was 200 cc. Mother and were doing well after delivery. [facility] Vaginal Delivery Charge Delivery Type Details: and 2nd Degree LAC
--- NOTE | 2023-03-16 16:04 | Anesthesia Procedure Note ---
Date of Service March 16, 2023 Anesthesia Post Epidural Note Vital Signs Vital Signs: Temp Pulse Resp BP Pulse Ox 36.9 C 83 20 119/58 L 97 03/16/23 13:10 03/16/23 15:55 03/16/23 14:40 03/16/23 15:55 03/16/23 13:53 Notes Mental Status: alert / awake / arousable Nausea / Vomiting: adequately controlled Pain: adequately controlled Airway Patency, RR, SpO2: stable & adequate BP & HR: stable & adequate Hydration State: stable & adequate Neuraxial Anesthesia: was administered and sensory block is resolving Anesthetic Complications: no major complications apparent and Pt Satisfied with anesthetic care Epidural: Removed without complications and With tip intact
[2023-03-16] MEDS: IBUPROFEN 600 MG TAB PO PRN ×2 (17:23→21:56)
[2023-03-16] MEDS: BENZOCAINE 20% SPRY 85 APPLN/85 GM CAN EXT PRN (17:24)
[2023-03-16] MEDS: DOCUSATE SODIUM 100 MG CAP PO SCH (21:56)
[2023-03-16] MEDS: lamoTRIgine 100 MG TAB PO SCH (22:47)
[2023-03-16] MEDS: ACETAMINOPHEN 325 MG TAB PO PRN (22:51)
[2023-03-17 06:11] LABS: Hematocrit (blood only) 32.4 % (37.0-47.0); Hemoglobin 10.8 g/dl (12.0-16.0); Mean Corpuscular Hemoglobin 30.3 pg (25.0-34.0); Mean Corpuscular Hgb Conc 33.3 g/dL (32.0-36.0); Mean Corpuscular Volume 90.8 fL (80.0-100.0); Mean Platelet Volume 11.5 fL (9.4-12.4); Platelet Count 196 K/uL (130-400); RDW Coefficient of Variation 14.4 % (11.5-14.5); RDW Standard Deviation 47.6 fL (36.4-46.3); Red Blood Count 3.57 M/uL (4.20-5.40); White Blood Count 21.36 K/ul (4.8-10.8)
--- NOTE | 2023-03-17 07:31 | Obstetrical Progress Note ---
Date of Service <Keeley Garcia MD - Last Filed: 03/17/23 07:32> March 17, 2023 Assessment & Plan <Keeley Garcia MD - Last Filed: 03/17/23 07:32> (1) Encounter for assessment: Plan Patient with the above mentioned history and findings was evaluated at bedside and found awake, alert, oriented in all spheres, afebrile, and in no acute distress. Vital signs showed no fever and blood pressures remained stable Her blood type is O pos and today's hemoglobin is adequate at 10.8 g/dL. She is GBS negative and rubella immune. Overall, patient is doing well clinically. Will continue routine pp care. All questions were answered. <Dary Mc MD, FACOG - Last Filed: 03/17/23 07:34> (1) Encounter for assessment: Subjective <Keeley Garcia MD - Last Filed: 03/17/23 07:32> Tiffanie is a 22 y/o female who is now PPD # 1 following at 40 0/7. Reports feeling well overall this morning. Refers mild abdominal cramping & 3/10 pain well managed on analgesics. Voiding spontaneously. Tolerating meals overnight and able to ambulate some. Passing flatus but no bowel movements yet. Some persistent lochia with some improvement this morning. . Constitutional: no fever, no chills or no sweats Denies shortness of breath or difficulty breathing Cardiovascular: no chest pain or no palpitations Breast: no breast pain Genitourinary (female): no dysuria Neurologic: no headache(s) Denies changes in vision Physical Exam <Keeley Garcia MD - Last Filed: 03/17/23 07:32> General: Alert. Oriented to person, time, and place. Afebrile. No acute distress. Eyes: pupils equal and reactive to light bilaterally, extraocular movements intact. Cardiac: Regular rate and rhythm, no murmurs/rubs/gallops. Respiratory: Clear to auscultation bilaterally a/p, no wheezes/rales/rhonchi. No increased work of breathing. Symmetrical chest rise. No respiratory distress. Abdomen: Soft, nontender, nondistended. Bowel sounds present. Uterus: Uterine fundus firm, mildly tender, and palpable below umbilicus. Lower Extremities: No lower extremity edema or swelling. No deep calf pain. Peter's negative bilaterally. Psych: Euthymic affect. Mood and affect congruence. Regular speech rate and content. Results & Data <Keeley Garcia MD - Last Filed: 03/17/23 07:32> Vital Signs (Past 12 Hours) Vital Signs Temp Pulse Resp BP Pulse Ox O2 Del Method 03/17/23 03:36 36.7 C 64 16 128/85 94 Room Air 03/16/23 23:05 36.9 C 57 L 16 128/87 96 Room Air 03/16/23 19:57 36.8 C 62 16 125/78 95 Room Air Supervising Physician <Dary Mc MD, FACOG - Last Filed: 03/17/23 07:34> Co-Signing Physician Notes Resident Physician Supervision Note: I interviewed and examined the patient. Discussed with Dr. Garcia and agree with findings and plan as documented in the note. Any exceptions or clarifications are listed here: [None] Documented By: Dary Mc MD, FACOG Resident Activity Tracking <Keeley Garcia MD - Last Filed: 03/17/23 07:32> Resident Involvement: Resident Care Provided Care Provided: OB Delivery
[2023-03-17] MEDS: IBUPROFEN 600 MG TAB PO PRN ×3 (08:41→23:40)
[2023-03-17] MEDS: DOCUSATE SODIUM 100 MG CAP PO SCH ×2 (08:41→20:40)
[2023-03-17] MEDS: PRENATAL VITAMIN 1 TAB PO SCH (08:41)
[2023-03-17] MEDS: lamoTRIgine 100 MG TAB PO SCH ×2 (08:42→20:40)
[2023-03-17] MEDS ORDERED: lamoTRIgine 100 MG TAB PO SCH (09:00)
[2023-03-17] MEDS: ACETAMINOPHEN 325 MG TAB PO PRN (09:36)
[2023-03-17] MEDS ORDERED: bisacodyL 5 MG TABEC PO SCH (20:00)
--- NOTE | 2023-03-18 06:16 | Obstetrical Progress Note ---
Date of Service <Keeley Garcia MD - Last Filed: 03/18/23 07:13> March 18, 2023 Assessment & Plan <Keeley Garcia MD - Last Filed: 03/18/23 07:13> (1) Encounter for assessment: Plan Patient with the above mentioned history and findings was evaluated at bedside and found awake, alert, oriented in all spheres, afebrile, and in no acute distress. Vital signs showed no fever and blood pressures remained stable Her blood type is O pos and today's hemoglobin is adequate at 10.8 g/dL. She is GBS negative and rubella immune. Overall, patient is doing well clinically and meeting all the desired milestones. Since she is clinically and hemodynamically stable, will discharge today. Patient counseled to schedule a follow up appointment with the OB office in 6 weeks for her routine pp evaluation. Discharge instructions discussed. All questions were answered. <Marleen Phan MD - Last Filed: 03/18/23 07:42> (1) Encounter for assessment: Subjective <Keeley Garcia MD - Last Filed: 03/18/23 07:13> Tiffanie is a 22 y/o female who is now PPD # 2 following at 40 0/7. Reports feeling well overall this morning. Refers mild abdominal cramping & 3/10 pain well managed on analgesics. Voiding spontaneously. Tolerating meals overnight and able to ambulate some. Passing flatus but no bowel movements yet. Some persistent lochia with some improvement this morning. . Constitutional: no fever, no chills or no sweats Denies shortness of breath or difficulty breathing Cardiovascular: no chest pain or no palpitations Breast: no breast pain Genitourinary (female): no dysuria Neurologic: no headache(s) Denies changes in vision Physical Exam <Keeley Garcia MD - Last Filed: 03/18/23 07:13> General: Alert. Oriented to person, time, and place. Afebrile. No acute distress. Eyes: pupils equal and reactive to light bilaterally, extraocular movements intact. Cardiac: Regular rate and rhythm, no murmurs/rubs/gallops. Respiratory: Clear to auscultation bilaterally a/p, no wheezes/rales/rhonchi. No increased work of breathing. Symmetrical chest rise. No respiratory distress. Abdomen: Soft, nontender, nondistended. Bowel sounds present. Uterus: Uterine fundus firm, non-tender, and palpable below umbilicus. Lower Extremities: No lower extremity edema or swelling. No deep calf pain. Marek an's negative bilaterally. Psych: Euthymic affect. Mood and affect congruence. Regular speech rate and content. Results & Data <Keeley Garcia MD - Last Filed: 03/18/23 07:13> Vital Signs (Past 12 Hours) Vital Signs Temp Pulse Resp BP 03/17/23 23:25 36.6 C 78 18 124/84 03/17/23 19:20 36.5 C 68 18 130/82 Supervising Physician <Marleen Phan MD - Last Filed: 03/18/23 07:42> Co-Signing Physician Notes Resident Physician Supervision Note: I interviewed and examined the patient. Discussed with Dr. Garcia and agree with findings and plan as documented in the note. Any exceptions or clarifications are listed here: PP2 s/p , doing well. Stable for dc home Documented By: Marleen Phan MD Resident Activity Tracking <Keeley Garcia MD - Last Filed: 03/18/23 07:13> Resident Involvement: Resident Care Provided Care Provided: OB Delivery
[2023-03-18] MEDS: PRENATAL VITAMIN 1 TAB PO SCH (08:22)
[2023-03-18] MEDS: lamoTRIgine 100 MG TAB PO SCH (08:22)
[2023-03-18] MEDS: DOCUSATE SODIUM 100 MG CAP PO SCH (08:22)
[2023-03-18] MEDS: IBUPROFEN 600 MG TAB PO PRN ×2 (08:23→14:50)
[2023-03-18] MEDS: BENZOCAINE 20% SPRY 85 APPLN/85 GM CAN EXT PRN (14:50)
== END 2023-03-18 15:10 | disposition home or self-care (01) | DRG 807 ==
LOC: OPB 02:43 → 4S1 02:45 → 4E2 17:53

== ENCOUNTER 2024-04-10 06:55 | Inpatient (IN) ==
[2024-04-10] MEDS ORDERED: OXYTOCIN 30 UNITS/NSS 30 UNITS/500 ML BAG IV PRN ×2 (07:15→15:00)
[2024-04-10] MEDS ORDERED: LIDOCAINE 1% LOCAL 20 ML VIAL INFIL PRN (07:15)
--- NOTE | 2024-04-10 07:50 | History & Physical Report ---
Date of Service April 10, 2024 Assessment & Plan (1) Short interval between pregnancies affecting , antepartum: Plan: Admit to L&D, EFM/toco. labs. Will monitor contraction pattern, agreeable to pitocin if necessary. OK for epidural when she desires. History of Present Illness Chief Complaint: rupture of membranes Primary Care Provider: John Smallwood PA-C 23yo @ 37 0/7, gush of clear fluid at home. +contractions, no vaginal bleeding. Allergies Allergy/AdvReac Type Severity Reaction Status Date / Time Penicillins Allergy Severe Hives, Verified 04/03/24 14:26 shortness of breath Home Medications Medication Instructions Recorded Confirmed Type vitamin with calcium 1 tab PO DAILY #90 tabs 10/26/22 04/10/24 Rx no.72-iron 27 mg-folic acid 1 mg tablet ( Vitamins Plus Low Iron) lamotrigine 100 mg tablet 100 mg PO BID #60 tabs 10/14/23 04/10/24 Rx ondansetron HCl 4 mg tablet 4 mg PO Q6H PRN nausea and 11/15/23 04/10/24 Rx vomiting #30 tabs Patient History Medical History Seizure disorder Observed seizure-like activity Seizures Last had a seizure October 2022. Surgical History S/P ureteral stent placement S/P wisdom tooth extraction Family History Other No pertinent family history in first degree relatives Denies family history of Ovarian cancer Breast cancer Colorectal cancer Social History Smoking Status: Never smoker Tobacco Type: E-cigarettes / Vaping Age Quit Using Tobacco: 21; Second Hand Exposure: Yes; Do You Dip or Chew Tobacco: No; Hx Alcohol Use: No Hx Substance Use: No Preferred Language: Zambian Communication Ability: Effective Commercial Installer Required: No Beliefs That Will Affect Care: Spiritual marital status: Single marital status details: Benito Lowry (24) [phone] Current Living Situation: Family and Significant Other Current Living Situation Comment: lives alone FOB and child, 2 dogs current occupational status: employed current occupation: [employer] Diet: regular Assistive Devices: Contacts and Glasses Review of Systems All systems reviewed & are unremarkable except as noted in HPI & below Physical Exam Physical Exam: FHT Cat 1 [place] irreg ctx 2-3/90/-2 Constitutional: WD/WN, vitals as above Respiratory: normal respiratory effort, lungs clear to auscultation no respiratory distress Cardiovascular: Rate/Rhythm: regular rate and regular rhythm Gastrointestinal (Abdomen): Inspection/Auscultation: abdomen normal to inspection Percussion/Palpation: abdomen soft; abdomen nontender Gravid. No s/s chorio or abruption. Skin: no rashes, warm and dry Psychiatric: A+Ox3, euthymic affect Results & Data Vital Signs (Past 12 Hours) Vital Signs Temp Pulse Resp BP 04/10/24 07:15 20 04/10/24 07:15 37.0 C 88 20 116/71 Coding Level of Care Code None Diagnoses Short interval between pregnancies affecting , antepartum O09.899
[2024-04-10 08:03] LABS: Hematocrit (blood only) 36.4 % (37.0-47.0); Hemoglobin 11.9 g/dl (12.0-16.0); Mean Corpuscular Hgb Conc 32.7 g/dL (32.0-36.0); Mean Corpuscular Volume 88.8 fL (80.0-100.0); Mean Platelet Volume 11.8 fL (9.4-12.4); Platelet Count 251 K/uL (130-400); RDW Coefficient of Variation 14.1 % (11.5-14.5); RDW Standard Deviation 45.3 fL (36.4-46.3); White Blood Count 14.67 K/ul (4.8-10.8)
[2024-04-10] MEDS ORDERED: PROMETHAZINE 6.25 MG/50.25 ML BAG IV PRN (09:14)
[2024-04-10] MEDS ORDERED: ONDANSETRON INJ 2 MG/ML 2 ML VIAL IV PRN (09:14)
[2024-04-10] MEDS ORDERED: diphenhydrAMINE 50 MG/ML VIAL IV PRN (09:14)
[2024-04-10] MEDS ORDERED: LIDOCAINE 2% MPF LOCAL 5 ML VIAL EPI PRN (09:14)
[2024-04-10] MEDS ORDERED: NALBUPHINE HCL INJ 10 MG/ML AMP IV PRN (09:14)
[2024-04-10] MEDS ORDERED: BUPIVACAINE 0.25% PF 30 ML VIAL EPI PRN (09:14)
[2024-04-10] MEDS ORDERED: SODIUM CHLORIDE 0.9% PF INJ 10 ML VIAL EPI PRN (09:14)
[2024-04-10] MEDS ORDERED: fentANYL 2 MCG/ML BUPIVacaine 0.125%-NSS 100ML BAG EPI PRN (09:14)
[2024-04-10] MEDS ORDERED: NALOXONE HCL 1 MG in SODIUM CHLORIDE 0.9% 1,000 ML IV PRN (09:14)
[2024-04-10] MEDS ORDERED: ROPIVACAINE 0.5% PF 5 MG/ML 20 ML VIAL EPI PRN (09:14)
[2024-04-10] MEDS ORDERED: fentaNYL citrate PF 100 MCG/2 ML VIAL EPI PRN (09:14)
[2024-04-10] MEDS ORDERED: NALOXONE HCL 0.4 MG/1 ML VIAL/CARP IV PRN (09:14)
[2024-04-10] MEDS ORDERED: ePHEDrine sulfate 50 MG/ML AMP IV PRN (09:14)
--- NOTE | 2024-04-10 09:14 | Labor Progress Brief Note ---
Date of Service April 10, 2024 Subjective feeling more pain with ctx and wants epidural Assessment & Plan (1) PROM (premature rupture of membranes): (2) Short interval between pregnancies affecting , antepartum: Plan small cx change but no labor pattern, needs pitocin. will initiate after epidural. fhts categ 1. Physical Exam Constitutional: WD/WN, vitals as above Genitourinary: Manual OB Exam: + cervical dilation (3-4), + cervical effacement (75%) and + station -2 OB Exam Monitor Tracing: + external FHT monitor used, + external uterine monitor used (irreg), + category I and + normal FHT variability Results & Data Vital Signs (Past 12 Hours) Vital Signs Temp Pulse Resp BP 04/10/24 08:00 98.6 F 88 20 116/71 04/10/24 07:15 20 04/10/24 07:15 98.6 F 88 20 116/71 Coding Level of Care Code None Diagnoses PROM (premature rupture of membranes) O42.90 Short interval between pregnancies affecting , antepartum O09.899
[2024-04-10] MEDS: LACTATED RINGER'S 1,000 ML IV SCH (09:15)
[2024-04-10] MEDS: BUPIVACAINE 0.25% PF 30 ML VIAL EPI STA (09:32)
[2024-04-10] MEDS: SODIUM CHLORIDE 0.9% PF INJ 10 ML VIAL ONE (09:32)
[2024-04-10] MEDS: LIDOCAINE 2%/EPINEPHRINE 1:200,000 20 ML PF EPI STA (09:32)
[2024-04-10] MEDS: fentANYL 2 MCG/ML BUPIVacaine 0.125%-NSS 100ML BAG ONE (09:35)
[2024-04-10] MEDS: BUPIVACAINE 0.25% PF 30 ML VIAL ONE (09:38)
[2024-04-10] MEDS: fentaNYL citrate PF 100 MCG/2 ML VIAL EPI STA (09:38)
[2024-04-10] MEDS: fentaNYL citrate PF 100 MCG/2 ML VIAL ONE (09:38)
[2024-04-10] MEDS: LIDOCAINE 2%/EPINEPHRINE 1:200,000 20 ML PF ONE (09:38)
[2024-04-10] MEDS: SODIUM CHLORIDE 0.9% PF INJ 10 ML VIAL EPI STA (09:39)
[2024-04-10] MEDS: OXYTOCIN 30 UNITS/NSS 30 UNITS/500 ML BAG IV PRN (10:00)
--- NOTE | 2024-04-10 12:43 | Labor Progress Brief Note ---
Date of Service April 10, 2024 Subjective feeling pressure Assessment & Plan (1) PROM (premature rupture of membranes): Plan some cx change. fhts categ 1. c/w pit to achieve regular labor pattern. Physical Exam Constitutional: WD/WN, vitals as above Genitourinary: Manual OB Exam: + cervical dilation 4 cm, + cervical effacement 80% and + station -2 OB Exam Monitor Tracing: + external FHT monitor used, + external uterine monitor used (q2-4), + category I and + normal FHT variability Results & Data Vital Signs (Past 12 Hours) Vital Signs Temp Pulse Resp BP Pulse Ox 04/10/24 12:40 77 04/10/24 12:40 114/60 04/10/24 12:37 98 04/10/24 12:37 77 04/10/24 12:32 98 04/10/24 12:32 92 H 04/10/24 12:27 98 04/10/24 12:27 85 04/10/24 12:25 88 04/10/24 12:25 113/57 L 04/10/24 12:22 99 04/10/24 12:22 77 04/10/24 12:17 98 04/10/24 12:17 71 04/10/24 12:12 98 04/10/24 12:12 78 04/10/24 12:09 78 04/10/24 12:09 98/54 L 04/10/24 12:07 97 04/10/24 12:07 75 04/10/24 12:02 98 04/10/24 12:02 69 04/10/24 11:57 98 04/10/24 11:57 76 04/10/24 11:55 69 04/10/24 11:55 105/55 L 04/10/24 11:52 99 04/10/24 11:52 82 04/10/24 11:47 99 04/10/24 11:47 98 H 04/10/24 11:42 100 04/10/24 11:42 68 04/10/24 11:42 109/61 04/10/24 11:40 69 04/10/24 11:40 89/54 L 04/10/24 11:39 71 04/10/24 11:39 85/52 L 04/10/24 11:37 98 04/10/24 11:37 67 04/10/24 11:32 100 04/10/24 11:32 74 04/10/24 11:31 18 04/10/24 11:31 97.9 F 18 04/10/24 11:27 99 04/10/24 11:27 82 04/10/24 11:25 80 04/10/24 11:25 91/44 L 04/10/24 11:22 98 04/10/24 11:22 80 04/10/24 11:17 99 04/10/24 11:17 76 04/10/24 11:12 99 04/10/24 11:12 69 04/10/24 11:12 92/50 L 04/10/24 11:07 99 04/10/24 11:07 81 04/10/24 11:02 98 04/10/24 11:02 88 04/10/24 10:57 99 04/10/24 10:57 79 04/10/24 10:54 79 04/10/24 10:54 97/53 L 04/10/24 10:52 100 04/10/24 10:52 85 04/10/24 10:47 99 04/10/24 10:47 75 04/10/24 10:42 100 04/10/24 10:42 82 04/10/24 10:40 68 04/10/24 10:40 95/51 L 04/10/24 10:37 99 04/10/24 10:37 76 04/10/24 10:32 99 04/10/24 10:32 73 04/10/24 10:27 100 04/10/24 10:27 75 04/10/24 10:25 80 04/10/24 10:25 96/50 L 04/10/24 10:22 98 04/10/24 10:22 79 04/10/24 10:17 98 04/10/24 10:17 84 04/10/24 10:11 99 04/10/24 10:11 78 04/10/24 10:09 80 04/10/24 10:09 102/58 L 04/10/24 10:07 99 04/10/24 10:07 90 04/10/24 10:02 100 04/10/24 10:02 85 04/10/24 09:57 99 04/10/24 09:57 88 04/10/24 09:54 81 04/10/24 09:54 108/61 04/10/24 09:52 98 04/10/24 09:52 87 04/10/24 09:47 99 04/10/24 09:47 89 04/10/24 09:42 99 04/10/24 09:42 86 04/10/24 09:37 99 04/10/24 09:37 86 04/10/24 09:34 78 04/10/24 09:34 108/54 L 04/10/24 09:32 99 04/10/24 09:32 81 04/10/24 09:30 75 04/10/24 09:30 109/70 04/10/24 09:29 67 04/10/24 09:29 110/67 04/10/24 09:27 79 L 04/10/24 09:27 90 04/10/24 09:26 88 L 04/10/24 09:26 90 04/10/24 09:15 18 04/10/24 09:15 98.4 F 18 04/10/24 08:00 98.6 F 88 20 116/71 04/10/24 07:15 20 04/10/24 07:15 98.6 F 88 20 116/71 Coding Level of Care Code None Diagnoses PROM (premature rupture of membranes) O42.90
--- NOTE | 2024-04-10 14:45 | Anesthesia Procedure Note ---
Date of Service April 10, 2024 Anesthesia Post Epidural Note Vital Signs Vital Signs: Temp Pulse Resp BP Pulse Ox 36.6 C 113 H 16 114/71 100 04/10/24 12:54 04/10/24 14:37 04/10/24 12:54 04/10/24 14:25 04/10/24 14:37 Pain Intensity Lower Back: Pain Intensity: 7 Notes Mental Status: alert / awake / arousable Nausea / Vomiting: adequately controlled Pain: adequately controlled Airway Patency, RR, SpO2: stable & adequate BP & HR: stable & adequate Hydration State: stable & adequate Neuraxial Anesthesia: was administered and sensory block is resolving Anesthetic Complications: no major complications apparent and Pt Satisfied with anesthetic care Epidural: Removed without complications and With tip intact
[2024-04-10] MEDS ORDERED: bisacodyL 10 MG SUPP PR PRN (15:00)
[2024-04-10] MEDS ORDERED: HYDROCORTISONE ACETATE 25 MG SUPP PR PRN (15:00)
--- NOTE | 2024-04-10 15:03 | Delivery Summary ---
Vaginal Delivery Summary Date of Service April 10, 2024 Vaginal Delivery Summary and 2nd Degree LAC The patient dilated to complete and pushed to deliver a viable male infant Apgars 8 and 9 via over 2nd degree perineal laceration. Mild shoulder dystocia encountered relieved by Kimberly maneuvers and suprapubic pressure. Mouth and nose bulb suctioned at perineum. Remaining shoulders and body delivered with ease. was vigorous and crying at . Cord clamped at 30 seconds of life and to maternal abdomen where the cord was then doubly clamped and cut. Placenta delivered spontaneously and intact, three-vessel cord. Hemostasis achieved with dilute pitocin and uterine massage and drainage of the bladder for approximately 300 cc under sterile conditions. Laceration repaired in routine fashion with 3-0 vicryl. Cervix and sulci intact. QBL 177 cc. Mother and baby stable in recovery. [facility] Vaginal Delivery Charge Delivery Type Details: and 2nd Degree LAC
--- NOTE | 2024-04-10 16:30 | Anesthesia Procedure Note ---
Date of Service April 10, 2024 Anesthesia Post Epidural Note Vital Signs Vital Signs: Temp Pulse Resp BP Pulse Ox 36.6 C 77 16 109/59 L 100 04/10/24 12:54 04/10/24 16:22 04/10/24 12:54 04/10/24 16:22 04/10/24 14:37 Pain Intensity Lower Back: Pain Intensity: 7 Notes Mental Status: alert / awake / arousable Nausea / Vomiting: adequately controlled Pain: adequately controlled Airway Patency, RR, SpO2: stable & adequate BP & HR: stable & adequate Hydration State: stable & adequate Neuraxial Anesthesia: was administered and sensory block is resolving Anesthetic Complications: no major complications apparent and Pt Satisfied with anesthetic care Epidural: Removed without complications and With tip intact
[2024-04-10] MEDS: IBUPROFEN 600 MG TAB PO PRN (17:39)
[2024-04-10] MEDS: BENZOCAINE 20% SPRY 85 APPLN/85 GM CAN EXT PRN (17:47)
[2024-04-10] MEDS: ACETAMINOPHEN 325 MG TAB PO PRN (20:54)
[2024-04-10] MEDS: lamoTRIgine 25 MG TAB PO SCH (20:54)
[2024-04-10] MEDS: DOCUSATE SODIUM 100 MG CAP PO SCH (20:54)
[2024-04-10] MEDS ORDERED: lamoTRIgine 100 MG TAB PO SCH (21:00)
--- NOTE | 2024-04-11 05:42 | Obstetrical Progress Note ---
Date of Service April 11, 2024 Assessment & Plan (1) Encounter for care and examination after delivery: Plan: Encourage ambulation Encourage breast feeding Pain meds as needed Anticipate DC to home on 04/12/24 Admission and Anticipated Discharge Date Admission Date: April 10, 2024 Supervising Physician Co-Signing Physician Notes Patient seen with resident and agree with the above findings and plan. Patient doing well and stable for discharge if preferred Subjective Pt is 23 yo post- day 1 s/p at 37w0d Ambulation:In and out of room Voiding:voiding normally Passing gas: yes BM:no Diet tolerance:regular diet Lochia:bloody, no clots Feeding type: breast Current pain level: 0-3 /10 improved with tylenol and ibuprofen Resting comfortably this morning in NAD. Denies HOGAN, CP, SOB, N/V/D, LE pain/swelling. Review of Systems Review of Systems: As per HPI Physical Exam Constitutional: WD/WN, vitals as above Respiratory: normal respiratory effort, lungs clear to auscultation Cardiovascular: RRR, no murmur, no edema Gastrointestinal (Abdomen): normal bowel sounds, soft, nontender, no hepatosplenomegaly Uterine fundus firm and at level of umbilicus Neurologic: PERRL, EOMI, accommodation nl, no face palsy, no dysarthria Moving all 4 extremities on command Psychiatric: A+Ox3, euthymic affect Results & Data Vital Signs (Past 12 Hours) Vital Signs Temp Pulse Resp BP O2 Del Method 04/11/24 03:50 36.6 C 84 18 109/68 Room Air 04/11/24 01:10 36.8 C 73 18 109/62 Room Air 04/10/24 20:10 36.8 C 74 18 105/68 Room Air Resident Activity Tracking Resident Involvement: Resident Care Provided Care Provided: Adult Hospital Medicine and OB Delivery
[2024-04-11] MEDS: PRENATAL VITAMIN 1 TAB PO SCH (08:13)
[2024-04-11] MEDS: DIPHTHER/TETAN/PERTUS Vaccine (Tdap, Adol/Adult) 0.5mL IM ONE (09:08)
[2024-04-11] MEDS: ePHEDrine sulfate 50 MG/ML AMP ONE (09:09)
[2024-04-11] MEDS: bisacodyL 5 MG TABEC PO SCH (20:29)
[2024-04-11 23:00] VITALS: O2SAT 97
[2024-04-12 01:55] VITALS: RESP 16
--- NOTE | 2024-04-12 05:09 | Obstetrical Progress Note ---
Date of Service April 12, 2024 Assessment & Plan (1) Encounter for care and examination after delivery: Plan: Encourage ambulation Encourage breast feeding Continue lamotrigine 25 mg BID, Follow up with neurologist to titrate back to previous 100mg BID dose Pain meds as needed Anticipate DC to home today Admission and Anticipated Discharge Date Admission Date: April 10, 2024 Supervising Physician Co-Signing Physician Notes Resident Physician Supervision Note: I interviewed and examined the patient. Discussed with Dr. Hong and agree with findings and plan as documented in the note. Any exceptions or clarifications are listed here: PP2 s/p , doing well. Stable for dc today. LOf note, pt had stopped lamictal about a week ago and had to restart titration per pharmacy. Rec she discuss w/ her neurologist regarding titration going back up Documented By: Marleen Phan MD Subjective Pt is 23 yo post- day 2 s/p at 37w0d Ambulation:In and out of room Voiding:voiding normally Passing gas: yes BM:no Diet tolerance:regular diet Lochia:bloody, no clots Feeding type: breast Current pain level: 0-3 /10 improved with tylenol and ibuprofen Resting comfortably this morning in NAD. Denies HOGAN, CP, SOB, N/V/D, LE pain/swelling. Review of Systems Review of Systems: As per HPI Physical Exam Constitutional: WD/WN, vitals as above Respiratory: normal respiratory effort, lungs clear to auscultation Cardiovascular: RRR, no murmur, no edema Gastrointestinal (Abdomen): normal bowel sounds, soft, nontender, no hepatosplenomegaly (Uterine fundus is firm and 2 cm below umbilicus) Neurologic: PERRL, EOMI, accommodation nl, no face palsy, no dysarthria Psychiatric: A+Ox3, euthymic affect Results & Data Vital Signs (Past 12 Hours) Vital Signs Temp Pulse Resp BP Pulse Ox O2 Del Method 04/12/24 00:00 36.7 C 81 16 117/76 97 Room Air 04/11/24 19:30 36.8 C 81 18 110/72 97 Room Air Resident Activity Tracking Resident Involvement: Resident Care Provided Care Provided: Adult Hospital Medicine
[2024-04-12 08:01] VITALS: BP 131/80; PULSE 64; TEMP 97.7
== END 2024-04-12 11:29 | disposition home or self-care (01) | DRG 807 ==
LOC: OPB 06:55 → 4S1 07:13 → 4E2 17:25

== ENCOUNTER 2024-04-21 12:40 | Inpatient (IN) ==
[2024-04-21 13:41] LABS: Basophils # (auto) 0.04 K/uL (0.00-0.20); Basophils % (auto) 0.2 %; Eosinophils # (auto) 0.09 K/uL (0.00-0.50); Eosinophils % (auto) 0.5 %; Hematocrit (blood only) 41.5 % (37.0-47.0); Hemoglobin 13.6 g/dl (12.0-16.0); Immature Granulocytes % (auto) 0.6 %; Lymphocytes # (auto) 1.66 K/uL (1.20-3.40); Lymphocytes % (auto) 9.4 %; Mean Corpuscular Hemoglobin 28.9 pg (25.0-34.0); Mean Corpuscular Hgb Conc 32.8 g/dL (32.0-36.0); Mean Corpuscular Volume 88.3 fL (80.0-100.0); Mean Platelet Volume 10.4 fL (9.4-12.4); Monocytes # (auto) 0.68 K/uL (0.11-0.59); Monocytes % (auto) 3.9 %; Neutrophils # (auto) 15.03 K/uL (1.40-6.50); Neutrophils % (auto) 85.4 %; Platelet Count 397 K/uL (130-400); RDW Coefficient of Variation 14.1 % (11.5-14.5)
[2024-04-21 13:54] LABS: Pregnancy Test, Serum Negative (Negative)
[2024-04-21 14:00] LABS: Albumin Globulin Ratio 1.1 (0.9-2); Albumin Level 3.9 gm/dl (3.4-5.0); BUN Creatinine Ratio 23.7 (10-20); Bilirubin,Total 0.6 mg/dl (0.2-1.0); Calcium 9.6 mg/dl (8.6-10.3); Creatinine Clr Calc Pharmacy 111.7 ml/min; Globulin 3.5 gm/dl (2.5-4.0); Potassium 3.9 mmol/L (3.5-5.1); Total Protein 7.4 gm/dl (6.0-8.3)
[2024-04-21] MEDS: OPTIRAY 320 100ml IV ONE (14:39)
[2024-04-21 15:13] LABS: Appearance Urine Clear (Clear); Bilirubin Urine Negative (Negative); Blood Urine Negative (Negative); Color Urine Yellow; Glucose Urine UA Negative (Negative); Ketones Urine Negative (Negative); Leukocyte Esterase Urine Negative (Negative); Nitrite Urine Negative (Negative); Protein Urine Negative (Negative); Specific Gravity Urine 1.038 (1.000-1.030); Urobilinogen Urine Negative (Negative); pH Urine 5.5 (4.5-7.5)
--- NOTE | 2024-04-21 15:29 | CT Scan Report ---
ABDOMEN AND PELVIS CT WITH IV CONTRAST CT DOSE: 813.13 mGy.cm HISTORY: Acute generalized abdominal pain , abdominal pain TECHNIQUE: Multiaxial CT images of the abdomen and pelvis were performed following the IV administrat ion of 90 cc of Optiray, A dose lowering technique was utilized adhering to the principles of ALARA. COMPARISON STUDY: None. FINDINGS: Clear lung bases. No pneumatosis or pneumoperitoneum. Unremarkable spleen, pancreas, gallbl adder, adrenal glands and liver with probable hepatic steatosis. Patency of the hepatic and portal ve ins. Punctate nonobstructing calculus of the superior pole left kidney. No ureteral calculi or hydron ephrosis. Unremarkable urinary bladder. Enlarged heterogeneous postgravid uterus with endometrium jesus suring up to 2 cm. No adnexal mass lesions. Aorta and IVC are unremarkable. No lymphadenopathy. Parti ally calcified nonenlarged inguinal chain lymph nodes. No bowel obstruction or bowel wall thickening. Moderate colonic fecal retention. Normal appendix. Diastases recti. No acute fracture. IMPRESSION: 1. Enlarged postgravid appearance of the uterus with endometrial thickening. 2. No bowel obstruction or bowel wall thickening. Normal appendix. 3. Punctate left renal calculus. No hydronephrosis. 4. Diastases recti. ACT 112: Negative or not required by law. The above report was generated using voice recognition software. It may contain grammatical, syntax o r spelling errors. Electronically signed by: Jeb Ruiz M.D. 04/21/2024 3:28 PM
[2024-04-21] MEDS ORDERED: ONDANSETRON INJ 2 MG/ML 2 ML VIAL IV PRN (16:56)
[2024-04-21] MEDS ORDERED: ACETAMINOPHEN 325 MG TAB PO PRN (16:56)
[2024-04-21] MEDS ORDERED: GENTAMICIN CONSULT ACTIVE PRN (17:06)
[2024-04-21] MEDS: CLINDAMYCIN/D5W 900 MG/50 ML BAG IV SCH (18:12)
[2024-04-21] MEDS: GENTAMICIN SULFATE 375 MG in DEXTROSE 5% 100 ML IV SCH (18:42)
--- NOTE | 2024-04-21 19:23 | History & Physical Report ---
Date of Service April 21, 2024 Assessment & Plan (1) endometritis: Plan: Urinalysis was unremarkable as was breast exam. But with the elevated white count and suprapubic tenderness, we will admit her for endometritis and IV antibiotics. GBS was negative so we will begin clindamycin and gentamicin. Please see the orders for further directions. Admission and Anticipated Discharge Date Admission Date: April 21, 2024 History of Present Illness Chief Complaint: suprapubic pain and fever Primary Care Provider: John Smallwood PA-C Patient is a 23-year-old 2 para 2-0-0-2 female status post spontaneous v aginal delivery on 04/10/24. The delivery was uncomplicated however onset of ruptured membranes was not clear. She was having an uncomplicated recovery until several days ago when she started to experience intermittent lower abdominal pain. The pain seemed to worsen with urination. It became more persistent today and she developed a temperature of 100.8 at home. She came to the ER for further evaluation. She was afebrile during her evaluation in the emergency room but white count was 17,600 with increased neutrophils. Urinalysis was clear. She denies any change in vaginal discharge no increased odor or change in color. Lochia has been minimal. She is breast-feeding. She denies any breast pain or redness. Allergies Allergy/AdvReac Type Severity Reaction Status Date / Time Penicillins Allergy Severe Hives, Verified 04/21/24 17:12 shortness of breath Home Medications Medication Instructions Recorded Confirmed Type vitamin with calcium 1 tab PO DAILY #90 tabs 10/26/22 04/21/24 Rx no.72-iron 27 mg-folic acid 1 mg tablet ( Vitamins Plus Low Iron) ondansetron HCl 4 mg tablet 4 mg PO Q6H PRN nausea and 11/15/23 04/21/24 Rx vomiting #30 tabs lamotrigine 100 mg tablet 100 mg PO QAM 04/21/24 04/21/24 History Patient History Medical History Seizure disorder Observed seizure-like activity Seizures Last had a seizure October 2022. Surgical History S/P ureteral stent placement S/P wisdom tooth extraction Family History Other No pertinent family history in first degree relatives Denies family history of Ovarian cancer Breast cancer Colorectal cancer Social History Smoking Status: Former smoker Age Quit Using Tobacco: 21; Second Hand Exposure: No; Do You Dip or Chew Tobacco: No; Tobacco Cessation Education Requested by Patient: No Hx Alcohol Use: No Hx Substance Use: No Preferred Language: Danish Communication Ability: Effective Computer Graphics Illustrator Required: No Beliefs That Will Affect Care: None marital status: Single marital status details: Benito Lowry (24) [phone] Current Living Situation: Family and Significant Other Current Living Situation Comment: Patient lives alone FOB and child, 2 dogs current occupational status: employed current occupation: [employer] Other Information That Helps Us Care for You: No Feels Safe at Home: Yes Safety Concerns: Feels Safe At This Time Diet: regular Assistive Devices: Glasses Review of Systems All systems reviewed & are unremarkable except as noted in HPI & below Physical Exam Constitutional: WD/WN, vitals as above Chest (Breasts): Additional Comments: Breasts are without masses or erythema. Gastrointestinal (Abdomen): Abdomen is soft but tender in the suprapubic region. No rebound or guarding noted. Psychiatric: A+Ox3, euthymic affect Results & Data Vital Signs (Past 12 Hours) Vital Signs Temp Pulse Pulse Resp BP BP Pulse Ox 04/21/24 17:54 99.1 F 80 16 125/85 98 04/21/24 17:40 98.6 F 86 17 112/72 95 04/21/24 17:20 83 18 101/65 96 04/21/24 16:07 98.4 F 83 16 105/72 97 04/21/24 14:45 98.2 F 73 16 117/70 95 04/21/24 12:40 97.9 F 104 H 18 120/81 99 O2 Del Method 04/21/24 17:54 Room Air 04/21/24 17:40 Room Air 04/21/24 17:20 Room Air 04/21/24 16:07 Room Air 04/21/24 14:45 Room Air 04/21/24 12:40 Code Status & VTE Plan VTE Prophylaxis Plan VTE Prophylaxis will be ordered: No Coding Level of Care Code 95707 INT INP/OBS CARE MIN Diagnoses endometritis O86.12
--- NOTE | 2024-04-21 19:34 | Pharmacy Report ---
Pharmacy PK ABX Note - Date of Service April 21, 2024 - Assessment and Plan Assessment 23 year old post patient s/p vaginal delivery on 04/10/24. Presented due to intermittent lower abdominal pain and low grade fever at home. Started antibiotics to target post endometritis. GBS negative. Plan Gentamicin * 375 mg (5 mg/kg actual body weight) IV q24h * Trough level to be obtained if gentamicin continues > 72 hours Clindamycin 900 mg IV q8h Pharmacy will continue to follow and will adjust dose/frequency as necessary. Thank you.
[2024-04-21] MEDS: lamoTRIgine 100 MG TAB PO SCH (19:57)
--- NOTE | 2024-04-21 22:52 | Emergency Department Note ---
ED Provider Note History of Present Illness Chief Complaint: Infection Stated Complaint: WK POST PART, CHECK FOR INFECTION Time Seen by Provider: 04/21/24 14:00 Source: patient Mode of arrival: ambulatory Limitations: no limitations This patient is a 23-year-old female who presents to the emergency department for evaluation of lower abdominal pain. Patient reports that she is about 11 days . She had a spontaneous vaginal delivery without significant complications. She reports that she received 2 sutures but everything seems to be healing well. Over the past 2 to 3 days she has noticed some lower abdominal pain. She has experienced some chills and fevers as high as 100.8 F. She reports that she is still bleeding after delivery but no heavier than expected, and no abnormal vaginal discharge. She reports that urinating does seem to worsen the pain but she does not have dysuria. She is breast-feeding but denies any redness or swelling of her breasts to suggest mastitis. Home Medications Medication Instructions Recorded Confirmed Type vitamin with calcium 1 tab PO DAILY #90 tabs 10/26/22 04/21/24 Rx no.72-iron 27 mg-folic acid 1 mg tablet ( Vitamins Plus Low Iron) ondansetron HCl 4 mg tablet 4 mg PO Q6H PRN nausea and 11/15/23 04/21/24 Rx vomiting #30 tabs lamotrigine 100 mg tablet 100 mg PO QAM 04/21/24 04/21/24 History Allergies Allergy/AdvReac Type Severity Reaction Status Date / Time Penicillins Allergy Severe Hives, Verified 04/21/24 17:12 shortness of breath Past Med/Surg History Problem List endometritis Encounter for care and examination after delivery PROM (premature rupture of membranes) Short interval between pregnancies affecting , antepartum Seizure disorder during Seizure disorder Medical History Observed seizure-like activity Seizures Last had a seizure October 2022. Surgical History S/P ureteral stent placement S/P wisdom tooth extraction Family History Other No pertinent family history in first degree relatives Denies family history of Ovarian cancer Breast cancer Colorectal cancer Social History Smoking Status: Former smoker Age Quit Using Tobacco: 21; Second Hand Exposure: No; Do You Dip or Chew Tobacco: No; Tobacco Cessation Education Requested by Patient: No Hx Alcohol Use: No Hx Substance Use: No Preferred Language: Maltese Communication Ability: Effective Medical Claims Assistant Required: No Beliefs That Will Affect Care: None marital status: Single marital status details: Benito Lowry (24) [phone] Current Living Situation: Family and Significant Other Current Living Situation Comment: Patient lives alone FOB and child, 2 dogs current occupational status: employed current occupation: [employer] Other Information That Helps Us Care for You: No Feels Safe at Home: Yes Safety Concerns: Feels Safe At This Time Diet: regular Assistive Devices: Glasses Physical Exam Vital Signs Vital Signs - 24 hr 04/21/24 12:40 04/21/24 14:45 04/21/24 16:07 Temperature 36.6 C 36.8 C 36.9 C Temperature Source Temporal Artery Scan Oral Oral Pulse Rate 104 H Pulse Rate [Finger] 73 83 Respiratory Rate 18 16 16 Respiratory Effort / Characteristics Non-Labored Spontaneous Non-Labored Spontaneous Respiratory Depth Normal Normal Respiratory Pattern Regular Regular Blood Pressure 120/81 Blood Pressure [Right Arm] 117/70 105/72 Blood Pressure Mean 94 Blood Pressure Mean [Right Arm] 85 83 Blood Pressure Position [Right Arm] Semi-fowlers Semi-fowlers Pulse Oximetry 99 95 97 Oxygen Delivery Method Room Air Room Air Sepsis Recent Fever Within 48 Hours No Sepsis New/Unexplained Change in Mental Status N/A Sepsis Action Taken by Nursing No Action Required VITALS: Vitals are noted on the nurse's note and reviewed by myself. GENERAL: This is a 23-year-old female, in no acute distress, well-developed well-nourished. SKIN: The skin was without rashes. EYES: Pupils equal round and reactive to light and accommodation. MOUTH: Mucous membranes moist. Tonsils are not enlarged. Pharynx without erythema or exudate. NECK: Supple without nuchal rigidity. No lymphadenopathy. HEART: Regular rate and rhythm without murmurs gallops or rubs. LUNGS: Clear to auscultation bilaterally without wheezes, rales or rhonchi. ABDOMEN: Positive bowel sounds x 4. Soft, suprapubic tenderness to palpation. No guarding or rebound tenderness. NEURO: Patient was alert and oriented to person place and time. Course Administered Medications Clindamycin Phosphate (Cleocin/D5w) 900 mg in 50 mls @ 100 mls/hr IV Q8H CRYSTAL Stop: 05/01/24 17:59 Last Infusion: 04/21/24 18:42 Dose: Infused Documented By: Admin: 04/21/24 18:12 Dose: 100 mls/hr Documented By: CARLOS Gentamicin Sulfate 375 mg/ (Dextrose) 109.375 mls @ 100 mls/hr IV Q24H CRYSTAL Stop: 05/01/24 18:29 Last Admin: 04/21/24 18:42 Dose: 100 mls/hr Documented By: CARLOS Lamotrigine (Lamotrigine 100 Mg Tab) 100 mg PO BID CRYSTAL; Protocol Stop: 05/21/24 20:59 Last Admin: 04/21/24 19:57 Dose: 100 mg Documented By: AB Discontinued Medications Ioversol (Optiray 320 100ml) 90 ml IV ONCE ONE Stop: 04/21/24 14:39 Last Admin: 04/21/24 14:39 Dose: 90 ml Documented By: MAXIMILIAN Medical Decision Making Differential Diagnosis Differential diagnosis includes endometritis, UTI, mastitis, appendicitis, cholecystitis, wound infection, among others. Laboratory Data Attestation: I reviewed the patient's lab results. 04/21/24 13:14 04/21/24 13:14 Lab Results 04/21/24 04/21/24 Range/Units 13:14 14:48 WBC 17.60 H (4.8-10.8) K/ul RBC 4.70 (4.20-5.40) M/uL Hgb 13.6 (12.0-16.0) g/dl Hct 41.5 (37.0-47.0) % MCV 88.3 (80.0-100.0) fL MCH 28.9 (25.0-34.0) pg MCHC 32.8 (32.0-36.0) g/dL RDW Std Deviation 45.0 (36.4-46.3) fL RDW Coeff of Shankar 14.1 (11.5-14.5) % Plt Count 397 (130-400) K/uL MPV 10.4 (9.4-12.4) fL Immature Gran % (Auto) 0.6 % Neut % (Auto) 85.4 % Lymph % (Auto) 9.4 % Ramsey % (Auto) 3.9 % Eos % (Auto) 0.5 % Baso % (Auto) 0.2 % Neut # (Auto) 15.03 H (1.40-6.50) K/uL Lymph # (Auto) 1.66 (1.20-3.40) K/uL Ramsey # (Auto) 0.68 H (0.11-0.59) K/uL Eos # (Auto) 0.09 (0.00-0.50) K/uL Baso # (Auto) 0.04 (0.00-0.20) K/uL Immature Gran # (Auto) 0.10 (0.01-0.20) K/uL Sodium 138 (136-145) mmol/L Potassium 3.9 (3.5-5.1) mmol/L Chloride 106 (98-107) mmol/L Carbon Dioxide 23 (21-32) mmol/L Anion Gap 9 (3-11) BUN 18 (6-23) mg/dl Creatinine 0.76 (0.6-1.2) mg/dl Est Cr Clr Drug Dosing 111.7 ml/min eGFR 112.85 BUN/Creatinine Ratio 23.7 H (10-20) Glucose 83 (70-99(Fasting)) mg/dl Calcium 9.6 (8.6-10.3) mg/dl Total Bilirubin 0.6 (0.2-1.0) mg/dl AST 16 (13-39) U/L ALT 18 (7-52) U/L Alkaline Phosphatase 133 H (34-104) U/L Total Protein 7.4 (6.0-8.3) gm/dl Albumin 3.9 (3.4-5.0) gm/dl Globulin 3.5 (2.5-4.0) gm/dl Albumin/Globulin Ratio 1.1 (0.9-2) Lipase 12 (11-82) U/L HCG, Qual Negative (Negative) Urine Color Yellow Urine Appearance Clear (Clear) Urine pH 5.5 (4.5-7.5) Ur Specific [place] 1.038 H (1.000-1.030) Urine Protein Negative (Negative) Urine Glucose (UA) Negative (Negative) Urine Ketones Negative (Negative) Urine Blood Negative (Negative) Urine Nitrite Negative (Negative) Urine Bilirubin Negative (Negative) Urine Urobilinogen Negative (Negative) Ur Leukocyte Esterase Negative (Negative) Imaging Data Attestation: I personally reviewed and interpreted this imaging study as follows: Radiologist's Impression: Abdomen/Pelvis CT 04/21/24 14:[address] WITH IV CONTRAST CT DOSE: 813.13 mGy.cm HISTORY: Acute generalized abdominal pain , abdominal pain TECHNIQUE: Multiaxial CT images of the abdomen and pelvis were performed following the IV administration of 90 cc of Optiray, A dose lowering technique was utilized adhering to the principles of ALARA. COMPARISON STUDY: None. FINDINGS: Clear lung bases. No pneumatosis or pneumoperitoneum. Unremarkable spleen, pancreas, gallbladder, adrenal glands and liver with probable hepatic steatosis. Patency of the hepatic and portal veins. Punctate nonobstructing calculus of the superior pole left kidney. No ureteral calculi or hydronephrosis. Unremarkable urinary bladder. Enlarged heterogeneous postgravid uterus with endometrium measuring up to 2 cm. No adnexal mass lesions. Aorta and IVC are unremarkable. No lymphadenopathy. Partially calcified nonenlarged inguinal chain lymph nodes. No bowel obstruction or bowel wall thickening. Moderate colonic fecal retention. Normal appendix. Diastases recti. No acute fracture. IMPRESSION: 1. Enlarged postgravid appearance of the uterus with endometrial thickening. 2. No bowel obstruction or bowel wall thickening. Normal appendix. 3. Punctate left renal calculus. No hydronephrosis. 4. Diastases recti. ACT 112: Negative or not required by law. The above report was generated using voice recognition software. It may contain grammatical, syntax or spelling errors. Electronically signed by: Jeb Ruiz M.D. 04/21/2024 3:28 PM [facility] Narrative This patient is a 23-year-old female who presents to the emergency ferment for evaluation of lower abdominal pain and fevers. Patient is 11 days . Labs reveal a leukocytosis of 17,000. Urinalysis is not suggestive of infection. CT of the abdomen/pelvis shows enlarged uterus with endometrial thickening. The case was discussed with Dr. East from [facility] [employer]. She did evaluate the patient. She recommends admission to treat for possible endometritis with IV antibiotics. Patient was agreeable with the plan of care. She was admitted for further care. Discharge Plan Visit Data Chief Complaint: Infection Stated Complaint: WK POST PART, CHECK FOR INFECTION ED Provider: Ric Rubio ED Midlevel Provider: Eloise Piña Patient Disposition: Admitted As Inpatient Discharge Instructions Interventions: ED Discharge Assessment Last Done: 04/21/24 17:40
[2024-04-22 07:10] LABS: Basophils # (auto) 0.04 K/uL (0.00-0.20); Basophils % (auto) 0.4 %; Eosinophils # (auto) 0.46 K/uL (0.00-0.50); Eosinophils % (auto) 4.1 %; Hematocrit (blood only) 39.3 % (37.0-47.0); Hemoglobin 12.4 g/dl (12.0-16.0); Immature Granulocytes # (auto) 0.04 K/uL (0.01-0.20); Immature Granulocytes % (auto) 0.4 %; Lymphocytes # (auto) 2.37 K/uL (1.20-3.40); Lymphocytes % (auto) 21.1 %; Mean Corpuscular Hemoglobin 28.4 pg (25.0-34.0); Mean Corpuscular Hgb Conc 31.6 g/dL (32.0-36.0); Mean Corpuscular Volume 90.1 fL (80.0-100.0); Mean Platelet Volume 10.5 fL (9.4-12.4); Monocytes # (auto) 0.64 K/uL (0.11-0.59); Monocytes % (auto) 5.7 %; Neutrophils % (auto) 68.3 %; Platelet Count 375 K/uL (130-400); RDW Coefficient of Variation 14.1 % (11.5-14.5); RDW Standard Deviation 46.7 fL (36.4-46.3); Red Blood Count 4.36 M/uL (4.20-5.40); White Blood Count 11.25 K/ul (4.8-10.8)
[2024-04-22 07:22] LABS: Creatinine Clr Calc Pharmacy 107.5 ml/min
--- NOTE | 2024-04-22 08:38 | Gynecologic Progress Note ---
Date of Service April 22, 2024 Assessment & Plan (1) endometritis: Plan: suprapubic pain resolved and WBC count going down. will D/C after 18:30 antibiotics are done follow up in the office this week. Admission and Anticipated Discharge Date Admission Date: April 21, 2024 Subjective feeling better this morning. abdominal pain resolved has been afebrile during her admission. highest temp was 99.1 Review of Systems Review of Systems: All systems reviewed & are unremarkable except as noted in HPI & below Physical Exam Constitutional: WD/WN, vitals as above Gastrointestinal (Abdomen): abdomen non tender, and soft Psychiatric: A+Ox3, euthymic affect Results & Data Vital Signs (Past 12 Hours) Vital Signs Temp Pulse Pulse Resp BP Pulse Ox O2 Del Method 04/22/24 07:05 98.2 F 66 18 111/65 95 Room Air 04/22/24 03:00 97.5 F L 80 18 104/60 94 Room Air 04/21/24 23:05 98.8 F 80 18 121/78 96 Room Air PG Care Time/CCT Total # of Minutes Spent Total Time Spent with Patient: Total time spent is greater than 50% in coordination of care (as documented) at patient's floor/unit and/or counseling patient: Coding Level of Care Code 89950 SUB INP/OBS CARE 25MIN Diagnoses endometritis O86.12
[2024-04-22] MEDS: PRENATAL VITAMIN 1 TAB PO SCH (08:44)
[2024-04-22 11:22] VITALS: RESP 16
[2024-04-22 15:21] VITALS: PULSE 80; TEMP 98.2; O2SAT 95
[2024-04-22 16:09] VITALS: BP 104/63
[2024-04-22] MEDS: DOCUSATE SODIUM 100 MG CAP PO ONE (16:43)
--- NOTE | 2024-04-24 12:29 | Discharge Summary ---
Date of Service April 24, 2024 Admission HPI Per Admitting Provider Patient is a 23-year-old 2 para 2-0-0-2 female status post spontaneous vaginal delivery on 04/10/24. The delivery was uncomplicated however onset of ruptured membranes was not clear. She was having an uncomplicated recovery until several days ago when she started to experience intermittent lower abdominal pain. The pain seemed to worsen with urination. It became more persistent today and she developed a temperature of 100.8 at home. She came to the ER for further evaluation. She was afebrile during her evaluation in the emergency room but white count was 17,600 with increased neutrophils. Urinalysis was clear. She denies any change in vaginal discharge no increased odor or change in color. Lochia has been minimal. She is breast-feeding. She denies any breast pain or redness. Admission Exam (Per Admitting) Constitutional WD/WN, vitals as above Psychiatric A+Ox3, euthymic affect Hospital Course (1) endometritis: suprapubic pain resolved and WBC count going down. will D/C after 18:30 antibiotics are done follow up in the office this week. Discharge Plan Discharge Items Patient Disposition: Home - Self-Care Reason For Visit: ENDOMETRITIS Discharge Diagnosis: endometritis Activity: Resume your previous activity Non-emergency contact: Physician Relations Specialist Call non-emergency contact if: your symptoms worsen and your temperature is above 101 Follow-up/Referrals: John Smallwood PA-C [Primary Care Provider] - Diet: Regular Addtl Attending Provider Instructions: ACTIVITY RECOMMENDATIONS: * Gradual return to full activity over the next 2-3 weeks. * No lifting - nothing heavier than baby over the next 2-3 weeks. * Do not engage in vigorous exercise, sexual activity or sports until cleared by your physician. * Do not drive or operate any motorized equipment until cleared by your physician. * You may shower/bathe daily. MEDICATIONS: For discomfort or pain, you may use Acetaminophen (Tylenol), Ibuprofen (Advil), or Naproxen (Aleve) following the package directions. For constipation you may use Colace following the package directions. BREAST CARE: If you are not breast feeding: * Wear a supportive bra 24 hours a day for one to two weeks. * Avoid stimulating your breasts and nipples as much as possible during the first few weeks after delivery. * When taking a shower, have the warm water hit your back, not breasts. * When your breasts feel full, apply ice packs. Usually three to four times a day helps ease the discomfort. * Take a mild pain medication (Tylenol / Motrin) when you are uncomfortable. If breast feeding: * Use breast milk to lubricate nipples. Lansinoh cream may be used for sore nipples. You do not need to remove cream prior to breast feeding. If using a different brand of cream, check the label for directions regarding removal of cream prior to nursing. * Wear a supportive bra. * If having problems with breasts or breast feeding, call a vocational rehabilitation consultant or your health care provider. EPISIOTOMY CARE: After delivery, if you have an episiotomy (stitches), the following steps will ease discomfort and aid healing. * For the first 24 hours after delivery, place ice packs next to your episiotomy to help reduce swelling. * After the first 24 hour-period, sitz baths, either portable or in the tub, are suggested. A shower with a shower arm sprayed over the episiotomy may be comforting. * Noris care should be done after each voiding and bowel movement. Squirt warm water from a plastic bottle over the perineum (region of the body between the anus and urinary opening) and pat dry. * Use Dermoplast to ease discomfort. Shake container. Omer directly over the episiotomy. Place a Tucks on a clean sanitary pad next to your episiotomy. SPECIAL CARE INSTRUCTIONS: When you are discharged from the hospital, it is important for you to follow the instructions listed below: * During the first week at home, you should be able to care for yourself and your baby. In addition, the usual light household activities are encouraged. * Limit your activities to the way you feel. Do not try to clean the house or move furniture. Be sensible. * If you actively engage in sports and have done so up until the time of your delivery, you may resume these activities as soon as you feel able. This may take up to one month or even longer. Use good judgment. * Continue to take your vitamins for at least six weeks after the of your baby. * Your diet need not be limited unless you were on a special diet before your delivery. Breast-feeding mothers need around 2500 calories per day and at least 64-80 ounces of fluid per day (8 to 10 glasses). * You should eat foods from the four major food groups. Crash diets or fad diets are to be avoided. Eating lean meats, fresh fruits and vegetables, low-fat dairy products, high fiber foods and a regular exercise program, will help you get back to your pre- weight without putting your health at risk. * Constipation is sometimes a problem after delivery. Take a mild laxative as needed. If breast feeding, Milk of Magnesia is acceptable to use. You may use a suppository or Fleets enema if no episiotomy. * A daily shower or tub bath is suggested. Be sure to thoroughly and gently dry the perineum. * A bloody vaginal discharge will usually continue until around four weeks post . A small amount of bleeding may continue for as long as six weeks. Vaginal discharge changes from the bright red bleeding after delivery to pink then brownish and finally yellowish-pink before becoming white and disappearing. * Bleeding may increase with activity. Your first period may come in 4-8 weeks. If you are breast feeding, your period may be delayed even longer. * Nile (sex) can begin whenever both you and your partner feel comfortable and do not have any form of genital infection. It is recommended that you wait at least six weeks for internal and external healing to occur. If you have questions, please talk to your health care practitioner. A condom should be used to prevent infection and . * Foreplay, gentle intercourse and lubrication is very important the first several times to prevent pain. A water-based lubricant such as K-Y jelly or Astroglide may be used. * If you have RH negative blood and your baby is RH positive, you will receive RHOGAM by injection prior to discharge. The nurse will give you a card to keep with you that has the date and place that you received RHOGAM after delivery. * During your care, you had a Rubella screen done to check for the presence of rubella antibodies in your blood. If your test was negative, you will receive a Rubella vaccine prior to discharge. This vaccine may cause a fever, soreness at the injection site and flu-like symptoms. If these symptoms persist, notify your health care practitioner. is not advised for one month after a Rubella vaccine. * Verbalizes understanding of car seat law as reviewed with patient nursing. * Car Seat hand-out given and reviewed with patient by nursing. * Shaken baby information reviewed with patient by nursing. Call you doctor if: * Heavy bleeding (saturating several pads an hour) or passing clots the size of your fist. * A fever >101 degrees F (38.3 degrees C) on two occasions four hours apart and/or chills. * Unusual pain in the pelvic or vaginal areas. * "Baby Blues" lasting longer than two weeks. If you have any questions or concerns, call your health care practitioner at . FOLLOW UP VISIT: The office will call you to set up follow up appointment in the office this week. Pending Studies at Discharge: No Stand-Alone Forms: My [facility] [place], Smoking Cessation Medications and DC Order Prescriptions: Continued Vitamin Plus Low Iron 27 mg iron- 1 mg tablet 1 tab PO DAILY Qty: 90 2RF ondansetron HCl 4 mg tablet 4 mg PO Q6H PRN (Reason: nausea and vomiting) Qty: 30 0RF lamotrigine 100 mg tablet 100 mg PO QAM Discharge Orders: Discharge Order (Routine); Ordered 04/22/24 Ordered By: Dary Mc Admission Data Admit Date/Time: 04/21/24 16:57 Attending Provider: Dary Mc Admit Provider: Dary Mc Primary Care Provider: John Smallwood Other Interventions: Discharge Summary Assessment (RN) Last Done: 04/22/24 16:06 Coding Level of Care Code 95566 IN/OBS DISCH 30 MIN/LESS Diagnoses endometritis O86.12
== END 2024-04-22 19:45 | disposition home or self-care (01) | DRG 776 ==
LOC: ED 12:40 → 4E1 16:57